=== PATIENT | female | born 1940 | race Caucasian/White ===

== ENCOUNTER → 2018-01-09 09:55 | Outpatient (CLI) | payer MEDICARE, OTHER, SELFPAY ==
--- NOTE | 2018-01-09 | DI.MRI.S_ITS ---
PROCEDURE: MR SHOULDER RT WO CON INDICATIONS: UNKNOWN TECHNIQUE: Noncontrast oblique coronal T2 fast spin echo with fat saturation, oblique sagittal T1 spin echo and T2 fast spin echo with fat saturation, axial T1 spin echo and T2 fast spin echo with fat saturation through the shoulder. COMPARISON: None. FINDINGS: Image quality: Excellent. Rotator cuff: There is full-thickness tear involving distal supraspinatus with 2 cm medial retraction of torn tendon fibers to the level of acromion and a fluid-filled gap measures 2 cm in AP dimension. Full-thickness rupture of the anterior to mid fibers of the distal infraspinatus is also seen with 2 cm medial retraction of torn tendon fibers from its insertion humeral head to the level of acromion. Moderate grade articular surface partial thickness involving the posterior fibers of the distal infraspinatus is seen. Tendinosis and low-grade intrasubstance partial thickness involving distal subscapularis is noted. Sagittal images demonstrate moderate supraspinatus muscle atrophy. Bones and bursae: No bone marrow contusions or fractures. 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 The acromion demonstrates conventional anatomy, without an os acromiale. Small to moderate amount of glenohumeral joint fluid and subacromial subdeltoid bursal fluid is seen. No definite loose body is noted. Capsule and soft tissues: In the absence of intra-articular contrast, the labrum and glenohumeral ligaments appear intact. Mild degenerative changes throughout labrum is noted. The long head of the biceps tendon demonstrates normal location and morphology. The rotator interval appears normal, without fibrosis. The coracohumeral ligament is normal in thickness. IMPRESSION: 1. Full-thickness rupture of distal supraspinatus and anterior to mid fibers of distal infraspinatus at their insertions on the greater tuberosity of humeral head with 2 cm medial retraction to the level of acromion. Moderate supraspinatus muscle atrophy. Tendinosis and low-grade intrasubstance partial thickness involving distal subscapularis. Moderate articular surface partial-thickness involving posterior fibers of distal infraspinatus. 2. Moderate acromioclavicular joint and glenohumeral joint osteophytes. Small to moderate amount of joint effusion. No gross loose body is seen. 3. Mild degenerative changes throughout labrum with no definite focal labral tear. Dictated by: Raghu Toledo, M.D. on 01/11/2018 at 8:50 Approved by: Raghu Toledo M.D. on 01/11/2018 at 8:59
== END ==
PROVIDERS: Visit Provider Orthopaedic Surgery
DX: M25.511 Pain in right shoulder (principal)
CPT/HCPCS: 73221

== ENCOUNTER → 2021-07-19 10:17 | Outpatient (CLI) | payer MEDICARE, OTHER, SELFPAY ==
--- NOTE | 2021-07-19 10:22 | DI.CT.S_ITS ---
PROCEDURE: CT PEL WO CON INDICATIONS: pelvic fracture TECHNIQUE: Noncontrast 3 mm axial sections acquired through the bony pelvis, with coronal and sagittal reformatting. COMPARISON: [facility], CT, CT CHEST ABDOMEN PELVIS WITH CONTRAST, 07/02/2021, 15:43. FINDINGS: Image quality: Excellent. Bones: Patient is status post right total hip arthroplasty with anatomic right hip alignment. Post fusion changes in visualized lower lumbar spine at L4 through S1 levels are seen. There is no gross hardware loosening or failure. Pelvic ring is intact. No acute pelvic fracture or dislocation is seen. No suspicious intraosseous lesion. Osteoarthritic changes are noted in left hip joint and bilateral sacroiliac joints. Osteoarthritic changes also seen in symphysis pubis. No evidence of avascular necrosis of femoral head. No suspicious intraosseous lesion is seen. Soft tissues: [employer]IAN shunt catheter is noted within lower pelvis. Fecal stasis in the colon is seen with sigmoid diverticulosis. No CT evidence of acute diverticulitis. No free fluid or free air. Bladder wall thickness is normal. No pelvic lymphadenopathy by size criteria. No gross muscle or soft tissue abnormality is seen in pelvis and bilateral hip. IMPRESSION: 1. 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 No gross hardware complication. 2. No acute pelvic fracture or dislocation. Osteoarthritis throughout bony pelvis. No evidence of avascular necrosis of femoral head. 3. No suspicious bony lesion. 4. No gross pelvic soft tissue abnormality. Dictated by: Raghu Toledo M.D. on 07/19/2021 at 13:57 Approved by: Raghu Toledo M.D. on 07/19/2021 at 14:01
--- NOTE | 2021-07-19 10:22 | DI.CT.S_ITS ---
PROCEDURE: CT LUMBAR SPINE WO CON INDICATIONS: Radiculopathy, lumbar region TECHNIQUE: Noncontrast 3 mm thick sections acquired from the T12 level to the sacrum. Sagittal and coronal reformats were constructed. For radiation dose reduction, the following was used: automated exposure control. COMPARISON: [facility], CT, CT MYELOGRAM LUMBAR SPINE, 01/04/2020, 14:51. FINDINGS: Postsurgical changes L4-S1 posterior fixation by means of bilateral rods and pedicle screws. There are also partially visualized spinal stimulator leads in the pulse generator in the right paraspinous soft tissues. No acute complicating hardware features are identified. Unchanged anterolisthesis of L4 on L5 measuring approximately 7 mm. Retrolisthesis of L1 on L2 measuring approximately 4 mm is also unchanged. Vertebral body heights are maintained. There are very little lumbar spine there is disc height loss with vacuum disc phenomenon and associated degenerative endplate changes including posterior osteophytic ridging of the endplates. There is bulky facet hypertrophy from L2-L3 through L5-S1. No acute finding of the regional soft tissues. Aortic atherosclerosis. Sigmoid diverticulosis. At T12-L1, mild spinal canal stenosis and mild to moderate bilateral neural foraminal stenosis, similar to the prior study. L1-L2, retrolisthesis of L1 on L2 combines with posterior disc-osteophyte complex to flatten and indent the ventral thecal sac producing mild spinal canal stenosis. These factors combine with facet hypertrophy to produce moderate bilateral neural foraminal stenosis. At L2-L3, moderate to severe subarticular zone stenosis and mild to moderate spinal canal stenosis due to a combination of diffuse disc bulge and a superimposed broad-based posterior disc protrusion in conjunction with buckling of the ligamentum flavum and facet hypertrophy. Moderate bilateral neural foraminal stenosis. At L3-L4, moderate spinal canal and subarticular zone stenosis with moderate to severe bilateral neural foraminal stenosis due to a combination of diffuse disc bulge and superimposed disc protrusion with buckling of the ligamentum flavum and facet hypertrophy. At L4-L5, suspected moderate spinal canal and subarticular zone stenosis due to a combination of sagittal bulge related to the anterolisthesis in conjunction with posterior discussed by complex and bulky facet hypertrophy. Mild to moderate neural foraminal stenosis. L5-S1, no obvious spinal canal stenosis. Mild to moderate neural foraminal stenosis. IMPRESSION: No significant change from comparison exam. Moderate to severe degenerative changes and post-surgical changes as detailed above. Dictated by: Kaleb Portillo M.D. on 07/19/2021 at 18:02 Approved by: Kaleb Portillo M.D. on 07/22/2021 at 15:09
== END ==
PROVIDERS: PCP Student in an Organized Health Care Education/Training Program; Referring Provider Physical Medicine & Rehabilitation; Visit Provider Physical Medicine & Rehabilitation
DX: M47.26 Other spondylosis with radiculopathy, lumbar region (principal); M19.09 Primary osteoarthritis, other specified site; K57.30 Diverticulosis of large intestine without perforation or abscess without bleeding; Z96.641 Presence of right artificial hip joint; Z98.1 Arthrodesis status
CPT/HCPCS: 72131; 72192

== ENCOUNTER 2021-09-27 19:38 | Emergency (ER) | payer MEDICARE, OTHER, SELFPAY ==
[2021-09-27] VITALS (9 sets, daily range): BP systolic 123–170; BP diastolic 67–82; PULSE 50–54; RESP 12–28; TEMP 36.3; O2SAT 94–98; BMI 28.3
--- NOTE | 2021-09-27 20:01 | DI.RAD.S_ITS ---
PROCEDURE: XR CHEST 2V INDICATIONS: Possible stroke TECHNIQUE: 2 views of the chest were acquired. COMPARISON: [facility], CR, XR CHEST 1VW (PORTABLE), 05/04/2016, 7:30. FINDINGS: Surgical changes and devices: There is a partially visualized DANCE HALL HOST/HOSTESS shunt catheter projecting over the right hemithorax. Epidural neurostimulator leads also demonstrated projecting over the lower thoracic spine, with the tips at T8 and T9. Lungs and pleura: There is a linear opacity in the left upper lung zone consistent with atelectasis or scarring. Lungs otherwise appear clear. No pleural effusions or pneumothorax. Mediastinum: There is a large hiatal hernia. Heart size is mildly enlarged. Bones and chest wall: No suspicious bony abnormalities. Soft tissues appear unremarkable. IMPRESSION: 1. No definite acute cardiopulmonary disease. 2. Large hiatal hernia. Dictated by: Jonas Chadwick M.D. on 09/27/2021 at 21:49 Approved by: Jonas Chadwick M.D. on 09/27/2021 at 21:50
--- NOTE | 2021-09-27 20:02 | DI.CT.S_ITS ---
PROCEDURE: CT HEAD/BRAIN WO CON INDICATIONS: facial droop this morning TECHNIQUE: Noncontrast 4.5 mm thick angled axial sections acquired from the foramen magnum to the vertex, with coronal and sagittal reformats. For radiation dose reduction, the following was used: automated exposure control, adjustment of mA and/or kV according to patient size. COMPARISON: [facility], CT, CT HEAD WITHOUT CONTRAST, 03/28/2019, 13:42. FINDINGS: Image quality: Excellent. CSF spaces: There is a right posterior parietal ventriculostomy shunt catheter with the tip extending into the anterior horn of the right lateral ventricle. Ventricles appear slightly decreased in size compared to the 03/28/2019 study. Basal cisterns are patent. No extra-axial fluid collections. Brain: No intracranial hemorrhage, mass, or mass effect. There are subcortical, periventricular and deep white matter hypodensities consistent with [id number] chronic small vessel ischemic changes. The campbell-white matter junction appears preserved. There is intracranial internal carotid artery atherosclerosis. Skull and face: There is a daniella hole in the right posterior parietal bone associated with the ventriculostomy shunt catheter. The visualized shunt catheter appears intact. Calvarium and visualized facial bones demonstrate no acute fractures. Sinuses: Visualized sinuses demonstrate small air-fluid levels within the sphenoid sinuses. A small air-fluid level was previously visualized in the right sphenoid sinus. Mastoid air cells are clear. IMPRESSION: 1. No definite acute intracranial abnormality. 2. Right posterior parietal [employer]ING [employer]GER shunt catheter appears unchanged in position. Ventricles appear slightly decreased in size compared to the prior study. 3. Mild to moderate chronic white matter small vessel ischemic changes. 4. Small air-fluid levels in the sphenoid sinuses suggestive of acute sinusitis. Dictated by: Jonas Chadwick M.D. on 09/27/2021 at 20:34 Approved by: Jonas Chadwick M.D. on 09/27/2021 at 20:39
[2021-09-27 21:08] LABS: Add Manual Diff / Slide Review NO; Basophils Absolute Auto 0 /uL (0-100); Basophils Percent Auto 0.8 % (0-2); Eosinophils Absolute Auto 100 /uL (0-450); Eosinophils Percent Auto 2.6 % (2-4); Hematocrit 39.2 % (36-46); Hemoglobin 12.9 g/dL (12.0-16.0); Lymphocytes Absolute Auto 1200 /uL (1100-4500); Lymphocytes Percent Auto 23.3 % (25-40); Mean Corpuscular Hemoglobin 31.7 PG (26-34); Monocytes Absolute Auto 400 /uL (0-900); Monocytes Percent Auto 7.3 % (3-14); Neutrophils Absolute Auto 3500 /uL (1500-7000); Platelet Count 222 X10^3/uL (150-400); Red Blood Cell Count 4.09 X10^6/uL (4.0-5.2); Red Cell Distribution Width 14.4 % (11.6-14.8); White Blood Cell Count 5.3 X10^3/uL (4.5-11.0)
[2021-09-27 21:17] LABS: Prothrombin Time 11.2 SECONDS (10.1-12.7)
[2021-09-27 21:19] LABS: PTT Partial Thromboplastin Tim 32 SECONDS (26.4-36.2)
[2021-09-27 21:21] LABS: Alanine Aminotransferase 29 IU/L (<35); Albumin 4.4 g/dL (3.5-5.0); Albumin Globulin Ratio 1.6 (1.0-2.8); Alkaline Phosphatase 133 U/L (38-126); Aspartate Aminotransferase 29 IU/L (14-36); BUN Creatinine Ratio 40.5 (6-22); Bilirubin Total 0.4 mg/dL (0.2-1.3); Blood Urea Nitrogen 32 mg/dL (7-17); Calcium 9.8 mg/dL (8.4-10.2); Carbon Dioxide 28 mmol/L (22-32); Chloride 104 mmol/L (98-107); Creatine Kinase 72 U/L (30-135); Estimated Glomerular Filt Rate > 60 mL/min (>60); Globulin 2.8 g/dL (1.7-4.1); Glucose 77 mg/dL (80-110); HEMOLYSIS < 15 (0-50); Magnesium 1.9 mg/dL (1.6-2.3); Potassium 4.2 mmol/L (3.4-5.1); Sodium 140 mmol/L (137-145); Total Protein 7.2 g/dL (6.3-8.2)
[2021-09-27 21:33] LABS: Troponin I < 0.012 ng/mL (0.01-0.034)
[2021-09-27 22:23] LABS: Appearance Urine UA CLEAR; Bilirubin Urine UA NEGATIVE (NEGATIVE); Color Urine UA YELLOW; Glucose Urine UA NEGATIVE (Negative); Ketones Urine UA NEGATIVE (NEGATIVE); Leukocyte Esterase Urine UA 1+ (NEGATIVE); Nitrite Urine UA NEGATIVE (Negative); Occult Blood Urine UA NEGATIVE (Negative); Protein Urine UA NEGATIVE (Negative); Ur Creatinine Normal (Normal); Ur Specific Gravity Normal (Normal); Urine pH Normal (Normal); Urobilinogen Urine UA 0.2 E.U./dL (0.2)
[2021-09-27 22:24] LABS: RBC Urine None Seen (0-5/HPF); Squamous Epithelial Cell Urine 0-1 /HPF (0-5/HPF); UR Morphine/Opiate cutoff 300 Negative (Negative); Urine Amphetamines Negative (Negative); Urine Barbiturates Negative (Negative); Urine Benzodiazepines Negative (Negative); Urine Cocaine Negative (Negative); Urine MDMA Negative (Negative); Urine Methadone Negative (Negative); Urine Methamphetamines Negative (Negative); Urine Oxycodone Negative (Negative); Urine Phencyclidine Negative (Negative); Urine Tetrahydrocannabinol Negative (Negative); Urine Tricyclic Antidepressant Negative (Negative)
[2021-09-27 22:25] LABS: Bacteria Urine Occasional (0-1); Culture Indicated Urine Specimen Cultured; WBC Urine 10-30/HPF (0-5/HPF)
--- NOTE | 2021-09-27 22:25 | ED.NEUROSD ---
HPI - Neuro Symptoms/Deficit General Chief Complaint: Neuro Symptoms/Deficit Stated Complaint: Rule out TIA / CVA Source: patient and family Mode of arrival: Wheelchair History of Present Illness On Anticoagulants: No (aspirin 81mg) Related Data Home Medications Medication Instructions Recorded Confirmed ALBUTEROL SULFATE (ACCUNEB) 3 ml INH Q 4-6 HR PRN ##0 05/11/12 CA PANTOTHENATE/FOLIC ACID/VIT 1 tab PO QDAY ##0 05/11/12 (MULTIVITAMIN) VITAMIN D (Vitamin D3) 2,000 iu PO QDAY ##0 05/11/12 LEVOTHYROXINE SODIUM 0.1 mg PO QDAY ##0 09/13/12 amlodipine 5 mg tablet (Norvasc) 10 mg PO QDAY ##0 09/13/12 hydrochlorothiazide 25 mg tablet 25 mg PO QDAY ##0 09/13/12 omeprazole 40 mg capsule,delayed 40 mg PO QDAY ##0 09/13/12 release venlafaxine 150 mg 300 mg PO QDAY ##0 09/13/12 capsule,extended release 24 hr fluticasone propionate 110 1 spray INH BID ##0 02/10/16 mcg/actuation HFA aerosol inhaler (Flovent HFA) Previous Rx's Medication Instructions Recorded nitrofurantoin 100 mg PO BID 7 days #0 caps 02/10/16 monohydrate/macrocrystals 100 mg capsule (Macrobid) phenazopyridine 200 mg tablet 200 mg PO TID PRN #6 tabs 02/10/16 (Pyridium) Allergies Allergy/AdvReac Type Severity Reaction Status Date / Time ciprofloxacin [From CIPRO] Allergy Unknown Unverified 07/01/17 12:01 codeine [CODEINE] Allergy Unknown HALLUCINATI Unverified 07/01/17 12:01 ON/WOOZY lisinopril [LISINOPRIL] Allergy Unknown COUGH Unverified 07/01/17 12:01 morphine [MORPHINE] Allergy Unknown HALLUCINATI Unverified 07/01/17 12:01 ONS pramipexole [PRAMIPEXOLE] Allergy Unknown MULTIPLE Unverified 07/01/17 12:01 UNPLEASANT SIDE EFFECTS Review of Systems Hematologic/Lymphatic On Anticoagulants: No (aspirin 81mg) Patient History Social History Smoking Status: Never smoker Smoking Status: Never smoker Substance Use Type: does not use Exam Initial Vital Signs Initial Vital Signs: Vital Signs Temperature 97.4 F L 09/27/21 19:48 Pulse Rate 53 L 09/27/21 19:48 Respiratory Rate 16 09/27/21 19:48 Blood Pressure 131/75 09/27/21 19:48 Pulse Oximetry 98 09/27/21 19:48 Oxygen Delivery Method 09/27/21 19:48 Course Orders Ordered: ED Orders 09/27/21 19:59 EKG-12 Lead Stat 09/27/21 20:01 XR chest 2V Stat 09/27/21 20:02 CT head/brain wo con Stat 09/27/21 20:50 Complete Blood Count AUTO DIFF Stat Comprehensive Metabolic Panel Stat Magnesium Stat Partial Thromboplastin Time Stat Prothrombin Time INR Stat Troponin & CK Cardiac Panel Stat 09/27/21 21:52 Urinalysis and Microscopic Stat Urine Culture Stat Urine Drug Screen, Rapid Stat Vital Signs Vital signs: Vital Signs - 8 hr 09/27/21 19:48 09/27/21 20:56 09/27/21 20:56 Temperature 97.4 F L Pulse Rate 53 L 53 L Respiratory Rate 16 19 Blood Pressure 131/75 141/74 H Pulse Oximetry 98 98 Oxygen Delivery Method Room Air 09/27/21 21:00 09/27/21 21:00 Temperature Pulse Rate 52 L Respiratory Rate 20 Blood Pressure 123/67 Pulse Oximetry 97 Oxygen Delivery Method MDM - Neuro Symptoms/Deficit Lab Data Result diagrams: 09/27/21 20:50 09/27/21 20:50 Labs: Lab Results 09/27/21 09/27/21 09/27/21 Range/Units 20:50 20:50 20:50 WBC 5.3 (4.5-11.0) X10^3/uL RBC 4.09 (4.0-5.2) X10^6/uL Hgb 12.9 (12.0-16.0) g/dL Hct 39.2 (36-46) % MCV 96.0 (80-100) fL MCH 31.7 (26-34) PG MCHC 33.0 (30-36) % RDW 14.4 (11.6-14.8) % Plt Count 222 (150-400) X10^3/uL Neut % (Auto) 66.0 (50-75) % Lymph % (Auto) 23.3 L (25-40) % [place]pie % (Auto) 7.3 (3-14) % Eos % (Auto) 2.6 (2-4) % Baso % (Auto) 0.8 (0-2) % Neut # (Auto) 3500 (9384-2627) /uL Lymph # (Auto) 1200 (6710-5421) /uL Gillespie # (Auto) 400 (0-900) /uL Eos # (Auto) 100 (0-450) /uL Baso # (Auto) 0 (0-100) /uL PT 11.2 (10.1-12.7) SECONDS INR 1.0 (0.9-1.3) APTT 32 (26.4-36.2) SECONDS Sodium 140 (137-145) mmol/L Potassium 4.2 (3.4-5.1) mmol/L Chloride 104 (98-107) mmol/L Carbon Dioxide 28 (22-32) mmol/L BUN 32 H (7-17) mg/dL Creatinine 0.79 (0.52-1.04) mg/dL Estimated GFR > 60 (>60) mL/min BUN/Creatinine Ratio 40.5 H (6-22) Glucose 77 L (80-110) mg/dL Calcium 9.8 (8.4-10.2) mg/dL Magnesium 1.9 (1.6-2.3) mg/dL Total Bilirubin 0.4 (0.2-1.3) mg/dL AST 29 (14-36) IU/L ALT 29 (<35) IU/L Alkaline Phosphatase 133 H (38-126) U/L Total Creatine Kinase 72 (30-135) U/L CK-MB (CK-2) TNP CK-MB (CK-2) Rel Index TNP Troponin I < 0.012 (0.01-0.034) ng/mL Total Protein 7.2 (6.3-8.2) g/dL Albumin 4.4 (3.5-5.0) g/dL Globulin 2.8 (1.7-4.1) g/dL Albumin/Globulin Ratio 1.6 (1.0-2.8) Urine Color Urine Appearance Urine pH (4.5-8.0) Ur Specific [place] (1.000-1.035) Urine Protein (Negative) Urine Glucose (UA) (Negative) g/dL Urine Ketones (NEGATIVE) Urine Occult Blood (Negative) Urine Nitrate (Negative) Urine Bilirubin (NEGATIVE) Urine Urobilinogen (0.2) E.U./dL Ur Leukocyte Esterase (NEGATIVE) Urine RBC (0-5/HPF) Urine WBC (0-5/HPF) Ur Squamous Epith Cells (0-5/HPF) Urine Bacteria (None) Ur Culture Indicated? U Opiates 300ng/mL cut (Negative) Ur Oxycodone Screen (Negative) Urine Methadone Screen (Negative) Ur Barbiturates Screen (Negative) U Tricyclic Antidepress (Negative) Ur Phencyclidine Scrn (Negative) Ur Amphetamines Screen (Negative) U Methamphetamines Scrn (Negative) Ur MDMA Scrn (Ecstasy) (Negative) U Benzodiazepines Scrn (Negative) Urine Cocaine Screen (Negative) U Marijuana (THC) Screen (Negative) 09/27/21 09/27/21 Range/Units 21:52 21:52 WBC (4.5-11.0) X10^3/uL RBC (4.0-5.2) X10^6/uL Hgb (12.0-16.0) g/dL Hct (36-46) % MCV (80-100) fL MCH (26-34) PG MCHC (30-36) % RDW (11.6-14.8) % Plt Count (150-400) X10^3/uL Neut % (Auto) (50-75) % Lymph % (Auto) (25-40) % Gillespie % (Auto) (3-14) % Eos % (Auto) (2-4) % Baso % (Auto) (0-2) % Neut # (Auto) (4631-2229) /uL Lymph # (Auto) (8562-9074) /uL Gillespie # (Auto) (0-900) /uL Eos # (Auto) (0-450) /uL Baso # (Auto) (0-100) /uL PT (10.1-12.7) SECONDS INR (0.9-1.3) APTT (26.4-36.2) SECONDS Sodium (137-145) mmol/L Potassium (3.4-5.1) mmol/L Chloride (98-107) mmol/L Carbon Dioxide (22-32) mmol/L BUN (7-17) mg/dL Creatinine (0.52-1.04) mg/dL Estimated GFR (>60) mL/min BUN/Creatinine Ratio (6-22) Glucose (80-110) mg/dL Calcium (8.4-10.2) mg/dL Magnesium (1.6-2.3) mg/dL Total Bilirubin (0.2-1.3) mg/dL AST (14-36) IU/L ALT (<35) IU/L Alkaline Phosphatase (38-126) U/L Total Creatine Kinase (30-135) U/L CK-MB (CK-2) CK-MB (CK-2) Rel Index Troponin I (0.01-0.034) ng/mL Total Protein (6.3-8.2) g/dL Albumin (3.5-5.0) g/dL Globulin (1.7-4.1) g/dL Albumin/Globulin Ratio (1.0-2.8) Urine Color Yellow Urine Appearance Clear Urine pH 6.0 (4.5-8.0) Ur Specific [place] 1.020 (1.000-1.035) Urine Protein Negative (Negative) Urine Glucose (UA) Negative (Negative) g/dL Urine Ketones Negative (NEGATIVE) Urine Occult Blood Negative (Negative) Urine Nitrate Negative (Negative) Urine Bilirubin Negative (NEGATIVE) Urine Urobilinogen 0.2 (0.2) E.U./dL Ur Leukocyte Esterase 1+ H (NEGATIVE) Urine RBC None seen (0-5/HPF) Urine WBC 10-30/hpf H (0-5/HPF) Ur Squamous Epith Cells 0-1 /hpf (0-5/HPF) Urine Bacteria Occasional (0-1) (None) Ur Culture Indicated? Specimen cultured U Opiates 300ng/mL cut Negative (Negative) Ur Oxycodone Screen Negative (Negative) Urine Methadone Screen Negative (Negative) Ur Barbiturates Screen Negative (Negative) U Tricyclic Antidepress Negative (Negative) Ur Phencyclidine Scrn Negative (Negative) Ur Amphetamines Screen Negative (Negative) U Methamphetamines Scrn Negative (Negative) Ur MDMA Scrn (Ecstasy) Negative (Negative) U Benzodiazepines Scrn Negative (Negative) Urine Cocaine Screen Negative (Negative) U Marijuana (THC) Screen Negative (Negative) Urine Dip Bedside Urine Glucose Negative Bedside Urine Bilirubin - Negative Bedside Urine Ketone - Negative Urine Specific [place] 1.025 Bedside Urine Occult Blood - Negative Bedside Urine pH 6.0 Bedside Urine Protein - Negative Bedside Urine Urobilinogen - Negative Bedside Urine Nitrite - Negative Bedside Urine Leukocytes + 70 Esterase Discharge Plan Departure Prescriptions: No Action ALBUTEROL SULFATE (ACCUNEB) 3 ml INH Q 4-6 HR PRN Qty: 0 CA PANTOTHENATE/FOLIC ACID/VIT (MULTIVITAMIN) 1 tab PO QDAY Qty: 0 VITAMIN D (Vitamin D3) 2,000 iu PO QDAY Qty: 0 amlodipine [Norvasc] 5 MG tablet 10 mg PO QDAY Qty: 0 omeprazole 40 MG capsule,delayed release(DR/EC) 40 mg PO QDAY Qty: 0 hydrochlorothiazide 25 MG tablet 25 mg PO QDAY Qty: 0 LEVOTHYROXINE SODIUM 0.1 mg PO QDAY Qty: 0 venlafaxine 150 MG capsule,extended release 24hr 300 mg PO QDAY Qty: 0 fluticasone propionate [Flovent HFA] 12 GM HFA aerosol inhaler 1 spray INH BID Qty: 0 phenazopyridine [Pyridium] 200 MG tablet 200 mg PO TID PRNQty: 6 0RF nitrofurantoin monohyd/m-cryst [Macrobid] 100 MG capsule 100 mg PO BID 7 Days Qty: 0 0RF Referrals: Myla Edouard MD [Primary Care Provider] -
--- NOTE | 2021-09-27 23:12 | ED.NEUROSD ---
HPI - Neuro Symptoms/Deficit General Chief Complaint: Neuro Symptoms/Deficit Stated Complaint: Rule out TIA / CVA Time Seen by Provider: 09/27/21 23:12 Source: patient and family Mode of arrival: Wheelchair History of Present Illness HPI Narrative: 81-year-old woman with history of normal pressure hydrocephalus with LENDING CONS[employer]ANT shunt in place, uterine cancer 4 years ago with chemo and radiation, lung cancer 2 years ago with radiation, schedule for hiatal hernia surgery in the near future, hypertension hyperlipidemia who presents with complaints of right-sided facial droop that lasted approximately 10 minutes. She noted that her right eye felt particularly puffy at about 11:00 a.m. this morning, went to the bathroom to check on it and noticed when she smiled the right side of her face did not go up completely. Mildly decreased sensation to the right side of the face with no other complaints. After talking to 2 daughters in her primary care physician she was encouraged to come to the emergency department. She presented at approximately 8:[address] scan was done. She has remained asymptomatic throughout her emergency department stay. She denies any recent fevers, cough, chills she notes that she has chronic dizziness chronic back pain with a nerve stimulator in place chronic paresthesia along the lateral aspect of the right thigh secondary to the nerve stimulator difficulty walking because of her back pain. She has not had cough, dyspnea. She has been having difficulty with chest pain reflux symptoms that are related to her large hiatal hernia but she has not complained of constipation or diarrhea. She has no dysuria urgency or frequency. On Anticoagulants: No (aspirin 81mg) Related Data Home Medications Medication Instructions Recorded Confirmed ALBUTEROL SULFATE (ACCUNEB) 3 ml INH Q 4-6 HR PRN ##0 05/11/12 CA PANTOTHENATE/FOLIC ACID/VIT 1 tab PO QDAY ##0 05/11/12 (MULTIVITAMIN) VITAMIN D (Vitamin D3) 2,000 iu PO QDAY ##0 05/11/12 LEVOTHYROXINE SODIUM 0.1 mg PO QDAY ##0 09/13/12 amlodipine 5 mg tablet (Norvasc) 10 mg PO QDAY ##0 09/13/12 hydrochlorothiazide 25 mg tablet 25 mg PO QDAY ##0 09/13/12 omeprazole 40 mg capsule,delayed 40 mg PO QDAY ##0 09/13/12 release venlafaxine 150 mg 300 mg PO QDAY ##0 09/13/12 capsule,extended release 24 hr fluticasone propionate 110 1 spray INH BID ##0 02/10/16 mcg/actuation HFA aerosol inhaler (Flovent HFA) Previous Rx's Medication Instructions Recorded nitrofurantoin 100 mg PO BID 7 days #0 caps 02/10/16 monohydrate/macrocrystals 100 mg capsule (Macrobid) phenazopyridine 200 mg tablet 200 mg PO TID PRN #6 tabs 02/10/16 (Pyridium) Allergies Allergy/AdvReac Type Severity Reaction Status Date / Time ciprofloxacin [From CIPRO] Allergy Unknown Unverified 07/01/17 12:01 codeine [CODEINE] Allergy Unknown HALLUCINATI Unverified 07/01/17 12:01 ON/WOOZY lisinopril [LISINOPRIL] Allergy Unknown COUGH Unverified 07/01/17 12:01 morphine [MORPHINE] Allergy Unknown HALLUCINATI Unverified 07/01/17 12:01 ONS pramipexole [PRAMIPEXOLE] Allergy Unknown MULTIPLE Unverified 07/01/17 12:01 UNPLEASANT SIDE EFFECTS Review of Systems Review of Systems Narrative: Remainder of complete review of systems is otherwise unremarkable except for that included in the HPI. Hematologic/Lymphatic On Anticoagulants: No (aspirin 81mg) Patient History Medical History (Updated 09/27/21 @ 23:39 by Lawanda Lockhart MD) Hyperlipidemia Hypertension Lung cancer Normal pressure hydrocephalus Uterine cancer Social History Smoking Status: Never smoker Smoking Status: Never smoker Substance Use Type: does not use Exam Initial Vital Signs Initial Vital Signs: Vital Signs Temperature 97.4 F L 09/27/21 19:48 Pulse Rate 53 L 09/27/21 19:48 Respiratory Rate 16 09/27/21 19:48 Blood Pressure 131/75 09/27/21 19:48 Pulse Oximetry 98 09/27/21 19:48 Oxygen Delivery Method 09/27/21 19:48 General: Chronically ill-appearing but in no acute distress. Able to give a complete and coherent history. Well-nourished well-developed HEENT: Moist mucous membranes, normal sclera with reactive pupils, no facial droop repairs seizures Neck: No JVD, supple Respiratory: Lungs are clear to auscultation, no wheezing no rales no rhonchi. Full and symmetrical air movement Cardiac: Regular rate and rhythm no murmurs no bruits Abdomen: Soft, nontender, good bowel tones, no flank pain Skin: Warm and dry, no rashes Neurologic: Moving all extremities, no cognitive deficits, mild right lateral thigh paresthesia chronic. Normal speech fluency Extremities: No trauma, well perfused Psych: Cooperative, good eye contact, appropriate insight Course Orders Ordered: ED Orders 09/27/21 19:59 EKG-12 Lead Stat 09/27/21 20:01 XR chest 2V Stat 09/27/21 20:02 CT head/brain wo con Stat 09/27/21 20:50 Complete Blood Count AUTO DIFF Stat Comprehensive Metabolic Panel Stat Magnesium Stat Partial Thromboplastin Time Stat Prothrombin Time INR Stat Troponin & CK Cardiac Panel Stat 09/27/21 21:52 Urinalysis and Microscopic Stat Urine Culture Stat Urine Drug Screen, Rapid Stat Vital Signs Vital signs: Vital Signs - 8 hr 09/27/21 19:48 09/27/21 20:56 09/27/21 20:56 Temperature 97.4 F L Pulse Rate 53 L 53 L Respiratory Rate 16 19 Blood Pressure 131/75 141/74 H Pulse Oximetry 98 98 Oxygen Delivery Method Room Air 09/27/21 21:00 09/27/21 21:00 09/27/21 21:30 Temperature Pulse Rate 52 L Respiratory Rate 20 Blood Pressure 123/67 128/69 Pulse Oximetry 97 Oxygen Delivery Method 09/27/21 21:30 09/27/21 21:54 09/27/21 21:54 Temperature Pulse Rate 52 L 54 L Respiratory Rate 21 28 H Blood Pressure 170/82 H Pulse Oximetry 97 94 Oxygen Delivery Method 09/27/21 22:00 09/27/21 22:00 09/27/21 22:30 Temperature Pulse Rate 50 L Respiratory Rate 12 Blood Pressure 140/74 150/77 H Pulse Oximetry 97 Oxygen Delivery Method 09/27/21 22:30 Temperature Pulse Rate 51 L Respiratory Rate 21 Blood Pressure Pulse Oximetry 97 Oxygen Delivery Method MDM - Neuro Symptoms/Deficit Lab Data Result diagrams: 09/27/21 20:50 09/27/21 20:50 Labs: Lab Results 09/27/21 09/27/21 09/27/21 Range/Units 20:50 20:50 20:50 WBC 5.3 (4.5-11.0) X10^3/uL RBC 4.09 (4.0-5.2) X10^6/uL Hgb 12.9 (12.0-16.0) g/dL Hct 39.2 (36-46) % MCV 96.0 (80-100) fL MCH 31.7 (26-34) PG MCHC 33.0 (30-36) % RDW 14.4 (11.6-14.8) % Plt Count 222 (150-400) X10^3/uL Neut % (Auto) 66.0 (50-75) % Lymph % (Auto) 23.3 L (25-40) % [place] % (Auto) 7.3 (3-14) % Eos % (Auto) 2.6 (2-4) % Baso % (Auto) 0.8 (0-2) % Neut # (Auto) 3500 (1447-8539) /uL Lymph # (Auto) 1200 (8842-6369) /uL [place] # (Auto) 400 (0-900) /uL Eos # (Auto) 100 (0-450) /uL Baso # (Auto) 0 (0-100) /uL PT 11.2 (10.1-12.7) SECONDS INR 1.0 (0.9-1.3) APTT 32 (26.4-36.2) SECONDS Sodium 140 (137-145) mmol/L Potassium 4.2 (3.4-5.1) mmol/L Chloride 104 (98-107) mmol/L Carbon Dioxide 28 (22-32) mmol/L BUN 32 H (7-17) mg/dL Creatinine 0.79 (0.52-1.04) mg/dL Estimated GFR > 60 (>60) mL/min BUN/Creatinine Ratio 40.5 H (6-22) Glucose 77 L (80-110) mg/dL Calcium 9.8 (8.4-10.2) mg/dL Magnesium 1.9 (1.6-2.3) mg/dL Total Bilirubin 0.4 (0.2-1.3) mg/dL AST 29 (14-36) IU/L ALT 29 (<35) IU/L Alkaline Phosphatase 133 H (38-126) U/L Total Creatine Kinase 72 (30-135) U/L CK-MB (CK-2) TNP CK-MB (CK-2) Rel Index TNP Troponin I < 0.012 (0.01-0.034) ng/mL Total Protein 7.2 (6.3-8.2) g/dL Albumin 4.4 (3.5-5.0) g/dL Globulin 2.8 (1.7-4.1) g/dL Albumin/Globulin Ratio 1.6 (1.0-2.8) Urine Color Urine Appearance Urine pH (4.5-8.0) Ur Specific [place] (1.000-1.035) Urine Protein (Negative) Urine Glucose (UA) (Negative) g/dL Urine Ketones (NEGATIVE) Urine Occult Blood (Negative) Urine Nitrate (Negative) Urine Bilirubin (NEGATIVE) Urine Urobilinogen (0.2) E.U./dL Ur Leukocyte Esterase (NEGATIVE) Urine RBC (0-5/HPF) Urine WBC (0-5/HPF) Ur Squamous Epith Cells (0-5/HPF) Urine Bacteria (None) Ur Culture Indicated? U Opiates 300ng/mL cut (Negative) Ur Oxycodone Screen (Negative) Urine Methadone Screen (Negative) Ur Barbiturates Screen (Negative) U Tricyclic Antidepress (Negative) Ur Phencyclidine Scrn (Negative) Ur Amphetamines Screen (Negative) U Methamphetamines Scrn (Negative) Ur MDMA Scrn (Ecstasy) (Negative) U Benzodiazepines Scrn (Negative) Urine Cocaine Screen (Negative) U Marijuana (THC) Screen (Negative) 09/27/21 09/27/21 Range/Units 21:52 21:52 WBC (4.5-11.0) X10^3/uL RBC (4.0-5.2) X10^6/uL Hgb (12.0-16.0) g/dL Hct (36-46) % MCV (80-100) fL MCH (26-34) PG MCHC (30-36) % RDW (11.6-14.8) % Plt Count (150-400) X10^3/uL Neut % (Auto) (50-75) % Lymph % (Auto) (25-40) % [place] % (Auto) (3-14) % Eos % (Auto) (2-4) % Baso % (Auto) (0-2) % Neut # (Auto) (1558-1909) /uL Lymph # (Auto) (7469-8116) /uL [place] # (Auto) (0-900) /uL Eos # (Auto) (0-450) /uL Baso # (Auto) (0-100) /uL PT (10.1-12.7) SECONDS INR (0.9-1.3) APTT (26.4-36.2) SECONDS Sodium (137-145) mmol/L Potassium (3.4-5.1) mmol/L Chloride (98-107) mmol/L Carbon Dioxide (22-32) mmol/L BUN (7-17) mg/dL Creatinine (0.52-1.04) mg/dL Estimated GFR (>60) mL/min BUN/Creatinine Ratio (6-22) Glucose (80-110) mg/dL Calcium (8.4-10.2) mg/dL Magnesium (1.6-2.3) mg/dL Total Bilirubin (0.2-1.3) mg/dL AST (14-36) IU/L ALT (<35) IU/L Alkaline Phosphatase (38-126) U/L Total Creatine Kinase (30-135) U/L CK-MB (CK-2) CK-MB (CK-2) Rel Index Troponin I (0.01-0.034) ng/mL Total Protein (6.3-8.2) g/dL Albumin (3.5-5.0) g/dL Globulin (1.7-4.1) g/dL Albumin/Globulin Ratio (1.0-2.8) Urine Color Yellow Urine Appearance Clear Urine pH 6.0 (4.5-8.0) Ur Specific [place] 1.020 (1.000-1.035) Urine Protein Negative (Negative) Urine Glucose (UA) Negative (Negative) g/dL Urine Ketones Negative (NEGATIVE) Urine Occult Blood Negative (Negative) Urine Nitrate Negative (Negative) Urine Bilirubin Negative (NEGATIVE) Urine Urobilinogen 0.2 (0.2) E.U./dL Ur Leukocyte Esterase 1+ H (NEGATIVE) Urine RBC None seen (0-5/HPF) Urine WBC 10-30/hpf H (0-5/HPF) Ur Squamous Epith Cells 0-1 /hpf (0-5/HPF) Urine Bacteria Occasional (0-1) (None) Ur Culture Indicated? Specimen cultured U Opiates 300ng/mL cut Negative (Negative) Ur Oxycodone Screen Negative (Negative) Urine Methadone Screen Negative (Negative) Ur Barbiturates Screen Negative (Negative) U Tricyclic Antidepress Negative (Negative) Ur Phencyclidine Scrn Negative (Negative) Ur Amphetamines Screen Negative (Negative) U Methamphetamines Scrn Negative (Negative) Ur MDMA Scrn (Ecstasy) Negative (Negative) U Benzodiazepines Scrn Negative (Negative) Urine Cocaine Screen Negative (Negative) U Marijuana (THC) Screen Negative (Negative) Urine Dip Bedside Urine Glucose Negative Bedside Urine Bilirubin - Negative Bedside Urine Ketone - Negative Urine Specific [place] 1.025 Bedside Urine Occult Blood - Negative Bedside Urine pH 6.0 Bedside Urine Protein - Negative Bedside Urine Urobilinogen - Negative Bedside Urine Nitrite - Negative Bedside Urine Leukocytes + [address] scan - head: Radiologist's Impression: FINDINGS:? Image quality:? Excellent.? ? CSF spaces:? There is a right posterior parietal ventriculostomy shunt catheter with the tip extending into the anterior horn of the right lateral ventricle.? Ventricles appear slightly decreased in size compared to the 03/28/2019 study.? Basal cisterns are patent.? No extra-axial fluid collections.? ? Brain:? No intracranial hemorrhage, mass, or mass effect.? There are subcortical, periventricular and deep white matter hypodensities consistent with [id number] chronic small vessel ischemic changes.? The campbell-white matter junction appears preserved. ?There is intracranial internal carotid artery atherosclerosis.? ? Skull and face:? There is a daniella hole in the right posterior parietal bone associated with the ventriculostomy shunt catheter.? The visualized shunt catheter appears intact.? Calvarium and visualized facial bones demonstrate no acute fractures. ? Sinuses:? Visualized sinuses demonstrate small air-fluid levels within the sphenoid sinuses.? A small air-fluid level was previously visualized in the right sphenoid sinus.? Mastoid air cells are clear. ? IMPRESSION:? ? 1. No definite acute intracranial abnormality. ? 2. Right posterior parietal [employer] shunt catheter appears unchanged in position.? Ventricles appear slightly decreased in size compared to the prior study. ? 3. Mild to moderate chronic white matter small vessel ischemic changes. ? 4. Small air-fluid levels in the sphenoid sinuses suggestive of acute sinusitis.? ? ? Dictated by: Jonas Chadwick M.D. on 09/27/2021 at 20:34 ? ? Chest x-ray: Radiologist's Impression: FINDINGS:? ? Surgical changes and devices:? There is a partially visualized [employer] shunt catheter projecting over the right hemithorax.? Epidural neurostimulator leads also demonstrated projecting over the lower thoracic spine, with the tips at T8 and T9. ? Lungs and pleura:? There is a linear opacity in the left upper lung zone consistent with atelectasis or scarring.? Lungs otherwise appear clear.? No pleural effusions or pneumothorax.? ? Mediastinum:? There is a large hiatal hernia.? Heart size is mildly enlarged.? ? Bones and chest wall:? No suspicious bony abnormalities.? Soft tissues appear unremarkable.? ? IMPRESSION:? ? 1. No definite acute cardiopulmonary disease. ? 2. Large hiatal hernia.? ? ? Dictated by: Jonas Chadwick M.D. on 09/27/2021 at 21:49 ? ? ECG Data Interpretation: Sinus bradycardia at a rate of 51 Left axis deviation No acute ischemic changes MDM Narrative Medical decision making narrative: 81-year-old woman presents with 10-15 minutes of right facial droop consistent with a mild TIA with symptoms entirely resolved at this point. She has a complex history including L[employer] CONS[employer]ANT shunt in place. She has never had stroke symptoms previously with a nerve stimulator in place she would not be able to have an MRI and has had multiple sets of imaging of her brain with no obvious abnormalities appreciated. CT scan today does not show intracranial hemorrhage, mass and shunt appears to be working appropriately. She currently takes 2 baby aspirin, blood pressure is controlled with medications and she is on a cholesterol-lowering medication. With shared decision-making we discussed options for TIA treatment. I think there is little benefit to the offering admission or additional workup for her. She is on appropriate medical management and treatment and does understand this. Reviewed signs and symptoms of stroke and reasons to return to the emergency department. Her L[employer] shunt would make her ineligible for tPA so the urgency of coming immediately is not stressed. With this discussion she would prefer to go home and I feel this is absolutely appropriate. Questions are answered and she is safe for home discharge Discharge Plan Departure Patient Disposition: Home Clinical Impression: Brain TIA Instructions: DI for Transient Ischemic Attack Activity Restrictions/Additional Instructions: Thank you for coming in today Your symptoms are consistent with a small TIA. I am very pleased that everything has completely resolved you seem back to normal this evening. Your CT scan was reassuring as was her blood work. Treatment for TIA includes everything that you are already doing including baby aspirin, blood pressure control and a cholesterol medication. Because of your shunt, if you were to have a large stroke, you would not be a candidate for using a blood clot busting medication. If you do have severe symptoms please do come to the emergency department. I wish you the best Prescriptions: No Action ALBUTEROL SULFATE (ACCUNEB) 3 ml INH Q 4-6 HR PRN Qty: 0 CA PANTOTHENATE/FOLIC ACID/VIT (MULTIVITAMIN) 1 tab PO QDAY Qty: 0 VITAMIN D (Vitamin D3) 2,000 iu PO QDAY Qty: 0 amlodipine [Norvasc] 5 MG tablet 10 mg PO QDAY Qty: 0 omeprazole 40 MG capsule,delayed release(DR/EC) 40 mg PO QDAY Qty: 0 hydrochlorothiazide 25 MG tablet 25 mg PO QDAY Qty: 0 LEVOTHYROXINE SODIUM 0.1 mg PO QDAY Qty: 0 venlafaxine 150 MG capsule,extended release 24hr 300 mg PO QDAY Qty: 0 fluticasone propionate [Flovent HFA] 12 GM HFA aerosol inhaler 1 spray INH BID Qty: 0 phenazopyridine [Pyridium] 200 MG tablet 200 mg PO TID PRNQty: 6 0RF nitrofurantoin monohyd/m-cryst [Macrobid] 100 MG capsule 100 mg PO BID 7 Days Qty: 0 0RF Referrals: Myla Edouard MD [Primary Care Provider] -
== END 2021-09-27 23:52 | disposition home or self-care (01) ==
PROVIDERS: Emergency Provider Emergency Medicine; PCP Student in an Organized Health Care Education/Training Program
DX: G45.9 Transient cerebral ischemic attack, unspecified (principal); I10 Essential (primary) hypertension; R00.1 Bradycardia, unspecified
CPT/HCPCS: 36415; 70450; 71046; 80053; 80305; 81001; 81003; 82550; 83735; 84484; 85025; 85610; 85730; 87086; 93005; 93010; 99284

== ENCOUNTER 2021-12-09 19:14 | Emergency (ER) | payer MEDICARE, OTHER, SELFPAY ==
[2021-12-09] VITALS (15 sets, daily range): BP systolic 139–173; BP diastolic 72–83; PULSE 44–61; RESP 12–37; TEMP 36.7; O2SAT 95–99
--- NOTE | 2021-12-09 19:23 | DI.RAD.S_ITS ---
PROCEDURE: XR CHEST 1V INDICATIONS: chest pain TECHNIQUE: One view of the chest was acquired. COMPARISON: [facility], CR, XR CHEST 2V, 09/27/2021, 20:07. FINDINGS: Surgical changes and devices: Multiple monitoring wires project over the chest. Stable appearance of thoracic spinal stimulator device. Partially imaged right ventriculoperitoneal shunt projecting over the right chest wall. Lungs and pleura: Redemonstration of linear opacity projecting over the left upper lung zone likely representing scarring or atelectasis. No new focal airspace disease. No pleural effusions or pneumothorax. Redemonstration of hiatal hernia. Mediastinum: Mediastinal contours appear normal. Heart size is normal. Bones and chest wall: No suspicious bony lesions. Overlying soft tissues appear unremarkable. IMPRESSION: Stable evaluation of the chest without acute cardiopulmonary abnormalities. No acute focal airspace disease identified. Dictated by: Bo Lerma M.D. on 12/09/2021 at 20:38 Approved by: Bo Lerma M.D. on 12/09/2021 at 20:41
[2021-12-09 19:52] LABS: Add Manual Diff / Slide Review NO; Alanine Aminotransferase 27 IU/L (<35); Albumin 4.1 g/dL (3.5-5.0); Albumin Globulin Ratio 1.2 (1.0-2.8); Alkaline Phosphatase 120 U/L (38-126); Aspartate Aminotransferase 34 IU/L (14-36); BUN Creatinine Ratio 27.3 (6-22); Basophils Absolute Auto 0 /uL (0-100); Basophils Percent Auto 0.4 % (0-2); Bilirubin Total 0.6 mg/dL (0.2-1.3); Blood Urea Nitrogen 21 mg/dL (7-17); Calcium 9.8 mg/dL (8.4-10.2); Carbon Dioxide 26 mmol/L (22-32); Chloride 103 mmol/L (98-107); Creatine Kinase 25 U/L (30-135); Eosinophils Absolute Auto 300 /uL (0-450); Eosinophils Percent Auto 7.7 % (2-4); Estimated Glomerular Filt Rate > 60 mL/min (>60); Globulin 3.3 g/dL (1.7-4.1); Glucose 81 mg/dL (80-110); Hematocrit 40.5 % (36-46); Hemoglobin 13.5 g/dL (12.0-16.0); Lipase 39 U/L (23-300); Lymphocytes Absolute Auto 1500 /uL (1100-4500); Lymphocytes Percent Auto 33.2 % (25-40); Magnesium 1.8 mg/dL (1.6-2.3); Mean Corpuscular HGB Conc 33.3 % (30-36); Mean Corpuscular Hemoglobin 31.3 PG (26-34); Mean Corpuscular Volume 94.2 fL (80-100); Monocytes Absolute Auto 400 /uL (0-900); Monocytes Percent Auto 8.4 % (3-14); Neutrophils Absolute Auto 2200 /uL (1500-7000); Neutrophils Percent Auto 50.3 % (50-75); Platelet Count 248 X10^3/uL (150-400); Red Cell Distribution Width 13.1 % (11.6-14.8); Sodium 137 mmol/L (137-145); Total Protein 7.4 g/dL (6.3-8.2); White Blood Cell Count 4.5 X10^3/uL (4.5-11.0)
[2021-12-09 19:54] LABS: COVID19 -Nasal RAPID Negative (Negative)
--- NOTE | 2021-12-09 19:54 | ED_ITS ---
HPI - Dizziness General Chief Complaint: Dizziness Stated Complaint: Dizzy nausea fatigue fall Time Seen by Provider: 12/09/21 19:46 Source: patient Mode of arrival: Wheelchair Limitations: no limitations History of Present Illness HPI Narrative: Patient presents with dizziness. She had surgery 2 weeks ago for hiatal hernia. She has experienced dizziness intermittently since then. She fell yesterday. She has dizziness now even when moving her head slightly. She has no visual changes, no confusion, no garbled speech. She has no focal numbness or weakness. She has difficulty standing walking due to the dizziness. She has no history of stroke or TIA. She denies recent illness. She has no nausea. Related Data Home Medications Medication Instructions Recorded Confirmed ALBUTEROL SULFATE (ACCUNEB) 3 ml INH Q 4-6 HR PRN ##0 05/11/12 CA PANTOTHENATE/FOLIC ACID/VIT 1 tab PO QDAY ##0 05/11/12 (MULTIVITAMIN) VITAMIN D (Vitamin D3) 2,000 iu PO QDAY ##0 05/11/12 LEVOTHYROXINE SODIUM 0.1 mg PO QDAY ##0 09/13/12 amlodipine 5 mg tablet (Norvasc) 10 mg PO QDAY ##0 09/13/12 hydrochlorothiazide 25 mg tablet 25 mg PO QDAY ##0 09/13/12 omeprazole 40 mg capsule,delayed 40 mg PO QDAY ##0 09/13/12 release venlafaxine 150 mg 300 mg PO QDAY ##0 09/13/12 capsule,extended release 24 hr fluticasone propionate 110 1 spray INH BID ##0 02/10/16 mcg/actuation HFA aerosol inhaler (Flovent HFA) Previous Rx's Medication Instructions Recorded nitrofurantoin 100 mg PO BID 7 days #0 caps 02/10/16 monohydrate/macrocrystals 100 mg capsule (Macrobid) phenazopyridine 200 mg tablet 200 mg PO TID PRN #6 tabs 02/10/16 (Pyridium) diazepam 2 mg tablet (Valium) 2 mg PO TID PRN dizziness #15 tabs 12/10/21 meclizine 25 mg tablet 25 mg PO QID PRN dizziness #60 tabs 12/10/21 Allergies Allergy/AdvReac Type Severity Reaction Status Date / Time ciprofloxacin [From CIPRO] Allergy Unknown Verified 12/09/21 20:21 codeine [CODEINE] Allergy Unknown HALLUCINATI Verified 12/09/21 20:21 ON/WOOZY lisinopril [LISINOPRIL] Allergy Unknown COUGH Verified 12/09/21 20:21 morphine [MORPHINE] Allergy Unknown HALLUCINATI Verified 12/09/21 20:21 ONS pramipexole [PRAMIPEXOLE] Allergy Unknown MULTIPLE Verified 12/09/21 20:21 UNPLEASANT SIDE EFFECTS Review of Systems Constitutional Constitutional: Reports system reviewed and no additional complaints, except as documented, Denies body ache(s), Denies chills, Denies fever(s) and Reports frequent falls Eyes Eyes: Denies blind spots, Denies blurry vision, Denies exophthalmos and Denies change in vision ENT Ears, Nose, Mouth, and Throat: Reports dizziness, Denies neck pain, Denies sore throat and Denies throat swelling Cardiovascular Cardiovascular: Denies chest pain, Denies pedal edema and Denies palpitations Respiratory Respiratory: Denies chest congestion and Denies cough Gastrointestinal Gastrointestinal: Denies abdominal pain, Denies dyspepsia, Denies nausea and Denies vomiting Genitourinary Genitourinary: Denies dysuria and Denies dysuria Musculoskeletal Musculoskeletal: Denies arthralgias and Denies neck pain Integumentary/Breasts Skin/Breast: Denies pruritus, Denies lesions and Denies rash Neurologic Neurologic: Denies confusion, Reports dizziness, Reports frequent falls and Denies memory loss Psychiatric Psychiatric: Denies confusion, Denies depression and Denies memory loss Endocrine Endocrine: Denies palpitations Hematologic/Lymphatic On Anticoagulants: No Allergic/Immunologic Allergic/Immunologic: Denies throat swelling Patient History Medical History (Updated 12/10/21 @ 00:18 by Robert Bates MD) Hyperlipidemia Hypertension Lung cancer Normal pressure hydrocephalus Uterine cancer Surgical History Status post Madhav fundoplication Social History Smoking Status: Never smoker Smoking Status: Never smoker Substance Use Type: does not use Exam Initial Vital Signs Initial Vital Signs: Vital Signs Pulse Oximetry 97 12/09/21 19:19 Const General: cooperative, healthy appearing, well developed, well groomed and No acute distress [facility] Head: normocephalic and atraumatic Nose: No nasal discharge Face and sinus: normal facial exam Mouth: oral mucosae normal Teeth and gingiva: dentition normal Throat: posterior oropharynx normal Eyes General: Yes appearance normal, both eyes and all related structures Neck Neck: normal visual inspection and No JVD Chest Chest: normal inspection of the chest Resp Auscultation: clear to auscultation bilaterally Cardio Rate: regular rate Rhythm: regular rhythm Heart Sounds: S1 normal, S2 normal and no murmurs GI Inspection: normal to inspection Palpation: soft, No no hepatosplenomegaly, No guarding and No mass Percussion: normal to percussion Back/Spine/Pelvis Back: normal to inspection and No back tenderness Cervical Spine: normal cervical lordosis Thoracic/Lumbar Spine: thoracic and lumbar spine normal to inspection Skin General: no rashes or lesions noted Neuro General: patient alert, patient awake, patient oriented x3, no focal motor deficits, not confused, not obtunded and [place] ( unobtainable due to extreme dizziness.) Cranial Nerves: CN's II-XI intact bilaterally Speech: speech normal Motor: muscle tone normal throughout Sensory Exam: no sensory deficits noted Psych Appearance: grossly normal Speech and Movement: speech and movement normal Scores NIH Stroke Scale Level of Conciousness: Alert, keenly responsive Ask month/age: Answers both questions correctly. Open/close eyes, close hand: Performs both tasks correctly Best gaze horizontal: Normal Visual parmar: No visual loss Facial palsy: Normal symetrical movement Left arm drift: No drift for full 10 sec Right arm drift: No drift for full 10 sec Left leg drift: No drift for full 5 sec Right leg drift: No drift for full 5 sec Limb ataxia: Present in one limb Sensory on face/arms/legs: Normal, no sensory loss Best language: No aphasia, normal Dysarthria: Normal Extinction or inattention: No abnormality Total NIH Stroke scale score: 1 Course Orders Ordered: ED Orders 12/09/21 19:23 XR chest 1V Stat 12/09/21 19:25 Complete Blood Count AUTO DIFF Stat Comprehensive Metabolic Panel Stat Lipase Stat Magnesium Stat Troponin & CK Cardiac Panel Stat 12/09/21 19:28 COVID19 -Nasal RAPID/Pre-Proc Stat 12/09/21 19:32 EKG-12 Lead Stat 12/09/21 19:59 CT head/brain wo con Stat 12/09/21 20:50 CT angio head and neck Stat Discontinued Medications Diazepam (Diazepam 2 Mg Tablet) 2 mg PO NOW ONE Stop: 12/09/21 21:47 Last Admin: 12/09/21 21:58 Dose: 2 mg Documented By: LINH Meclizine HCl (Meclizine Hcl 12.5 Mg Tablet) 25 mg PO NOW ONE Stop: 12/09/21 20:00 Last Admin: 12/09/21 20:21 Dose: 25 mg Documented By: LINH Vital Signs Vital signs: Vital Signs - 8 hr 12/09/21 19:21 12/09/21 19:19 12/09/21 19:20 Temperature 98.1 F Pulse Rate 61 57 L Respiratory Rate 22 Blood Pressure 139/72 Pulse Oximetry 99 97 97 Oxygen Delivery Method Room Air 12/09/21 19:20 12/09/21 19:30 12/09/21 20:00 Temperature Pulse Rate 51 L 51 L Respiratory Rate 37 H 37 H Blood Pressure 139/72 Pulse Oximetry 98 96 Oxygen Delivery Method 12/09/21 20:30 12/09/21 20:53 12/09/21 20:53 Temperature Pulse Rate 47 L 48 L Respiratory Rate 22 17 Blood Pressure 167/79 H Pulse Oximetry 97 98 Oxygen Delivery Method 12/09/21 21:08 12/09/21 21:30 12/09/21 22:00 Temperature Pulse Rate 54 L 48 L Respiratory Rate 19 Blood Pressure 172/83 H Pulse Oximetry 95 Oxygen Delivery Method 12/09/21 22:00 12/09/21 22:30 12/09/21 22:31 Temperature Pulse Rate 51 L 44 L Respiratory Rate 17 20 Blood Pressure 151/72 H Pulse Oximetry 95 Oxygen Delivery Method 12/09/21 22:31 12/09/21 23:00 12/09/21 23:00 Temperature Pulse Rate 44 L 45 L Respiratory Rate 17 12 Blood Pressure 168/81 H Pulse Oximetry 96 96 Oxygen Delivery Method 12/09/21 23:30 12/09/21 23:31 12/09/21 23:31 Temperature Pulse Rate 46 L 46 L Respiratory Rate 21 24 Blood Pressure 173/77 H Pulse Oximetry 96 95 Oxygen Delivery Method MDM - Dizziness Lab Data Result diagrams: 12/09/21 19:25 12/09/21 19:25 Labs: Lab Results 12/09/21 12/09/21 12/09/21 Range/Units 19:25 19:25 19:28 WBC 4.5 (4.5-11.0) X10^3/uL RBC 4.30 (4.0-5.2) X10^6/uL Hgb 13.5 (12.0-16.0) g/dL Hct 40.5 (36-46) % MCV 94.2 (80-100) fL MCH 31.3 (26-34) PG MCHC 33.3 (30-36) % RDW 13.1 (11.6-14.8) % Plt Count 248 (150-400) X10^3/uL Neut % (Auto) 50.3 (50-75) % Lymph % (Auto) 33.2 (25-40) % [place] % (Auto) 8.4 (3-14) % Eos % (Auto) 7.7 H (2-4) % Baso % (Auto) 0.4 (0-2) % Neut # (Auto) 2200 (0914-2358) /uL Lymph # (Auto) 1500 (2380-2596) /uL [place] # (Auto) 400 (0-900) /uL Eos # (Auto) 300 (0-450) /uL Baso # (Auto) 0 (0-100) /uL Sodium 137 (137-145) mmol/L Potassium 4.7 (3.4-5.1) mmol/L Chloride 103 (98-107) mmol/L Carbon Dioxide 26 (22-32) mmol/L BUN 21 H (7-17) mg/dL Creatinine 0.77 (0.52-1.04) mg/dL Estimated GFR > 60 (>60) mL/min BUN/Creatinine Ratio 27.3 H (6-22) Glucose 81 (80-110) mg/dL Calcium 9.8 (8.4-10.2) mg/dL Magnesium 1.8 (1.6-2.3) mg/dL Total Bilirubin 0.6 (0.2-1.3) mg/dL AST 34 (14-36) IU/L ALT 27 (<35) IU/L Alkaline Phosphatase 120 (38-126) U/L Total Creatine Kinase 25 L (30-135) U/L CK-MB (CK-2) TNP CK-MB (CK-2) Rel Index TNP Troponin I < 0.012 (0.01-0.034) ng/mL Total Protein 7.4 (6.3-8.2) g/dL Albumin 4.1 (3.5-5.0) g/dL Globulin 3.3 (1.7-4.1) g/dL Albumin/Globulin Ratio 1.2 (1.0-2.8) Lipase 39 (23-300) U/L SARS-CoV-2 (PCR) Negative (Negative) Imaging Data Chest x-ray: Radiologist's Impression: no acute findings CT scan - head: Radiologist's Impression: 1. No definite acute intracranial abnormality. ? 2. Mild ventriculomegaly appears similar to the prior study.? Right parietal PRODUCTION TEAM MEMBER shunt catheter appears stable in position. ? 3.? Mild to moderate chronic white matter small vessel ischemic changes and mild generalized cerebral volume loss.? ? CTA - brain/neck: Radiologist's Impression: 1. No definite acute intracranial abnormality. ? 2. No high-grade stenosis or occlusion of the central intracranial arteries. ? 3. No high-grade stenosis or occlusion of the head and neck arteries. ? 4. Mild ventriculomegaly appears similar to the prior studies, with the right PRODUCTION TEAM MEMBER shunt catheter stable in location. ECG Data Attestation: I personally reviewed and interpreted this ECG as follows: ( Sinus bradycardia rate 53 beats per minute. normal intervals. No ectopy. No acute ST T wave changes.) Discharge Plan Departure Patient Disposition: Home Clinical Impression: Dizziness Instructions: DI for Dizziness-Nonvertigo Activity Restrictions/Additional Instructions: Be sure you are hydrated at all times. Meclizine every 6 hours for dizziness. Valium 2 mg every 8 hours as needed for added treatment for dizziness. Contact your doctor tomorrow, if symptoms persist you should see a physical therapist. Prescriptions: New meclizine 25 mg tablet 25 mg PO QID PRN (Reason: dizziness) Qty: 60 0RF diazepam [Valium] 2 mg tablet 2 mg PO TID PRN (Reason: dizziness) Qty: 15 0RF No Action ALBUTEROL SULFATE (ACCUNEB) 3 ml INH Q 4-6 HR PRN Qty: 0 CA PANTOTHENATE/FOLIC ACID/VIT (MULTIVITAMIN) 1 tab PO QDAY Qty: 0 VITAMIN D (Vitamin D3) 2,000 iu PO QDAY Qty: 0 amlodipine [Norvasc] 5 MG tablet 10 mg PO QDAY Qty: 0 omeprazole 40 MG capsule,delayed release(DR/EC) 40 mg PO QDAY Qty: 0 hydrochlorothiazide 25 MG tablet 25 mg PO QDAY Qty: 0 LEVOTHYROXINE SODIUM 0.1 mg PO QDAY Qty: 0 venlafaxine 150 MG capsule,extended release 24hr 300 mg PO QDAY Qty: 0 fluticasone propionate [Flovent HFA] 12 GM HFA aerosol inhaler 1 spray INH BID Qty: 0 phenazopyridine [Pyridium] 200 MG tablet 200 mg PO TID PRNQty: 6 0RF nitrofurantoin monohyd/m-cryst [Macrobid] 100 MG capsule 100 mg PO BID 7 Days Qty: 0 0RF Referrals: Myla Edouard MD [Primary Care Provider] -
[2021-12-09 19:58] LABS: HEMOLYSIS 80 (0-50); Potassium 4.7 mmol/L (3.4-5.1)
--- NOTE | 2021-12-09 19:59 | DI.CT.S_ITS ---
PROCEDURE: CT HEAD/BRAIN WO CON INDICATIONS: Dizziness. History of PERFORMANCE TEST ENGINEER shunt. TECHNIQUE: Noncontrast 4.5 mm thick angled axial sections acquired from the foramen magnum to the vertex, with coronal and sagittal reformats. For radiation dose reduction, the following was used: automated exposure control, adjustment of mA and/or kV according to patient size. COMPARISON: [facility], CT, CT HEAD WITHOUT CONTRAST, 03/28/2019, 13:42. [facility], CT, CT HEAD/BRAIN WO CON, 09/27/2021, 20:07. FINDINGS: Image quality: Excellent. CSF spaces: Basal cisterns are patent. No extra-axial fluid collections. The ventricles are slightly enlarged but appear similar in size and shape compared to the prior study. There is a right parietal ventriculoperitoneal shunt catheter traversing the right parietal lobe and right lateral ventricle with the tip demonstrated in the anterior horn of the right lateral ventricle adjacent to the septum pellucidum, unchanged from the prior study. There is mild generalized cerebral volume loss, with resultant sulcal prominence. Brain: No intracranial hemorrhage, mass, or mass effect. There are subcortical, periventricular and deep white matter hypodensities consistent with mild to moderate chronic small vessel ischemic changes. The campbell-white matter junction appears preserved. There is intracranial internal carotid artery atherosclerosis. Skull and face: Calvarium and visualized facial bones demonstrate no acute fractures. There is a right posterior parietal daniella hole associated with the right PERFORMANCE TEST ENGINEER shunt catheter. Sinuses: Visualized sinuses demonstrate small air-fluid levels within the bilateral sphenoid sinuses suggestive of acute sinusitis. Mastoid air cells are clear. IMPRESSION: 1. No definite acute intracranial abnormality. 2. Mild ventriculomegaly appears similar to the prior study. Right parietal PERFORMANCE TEST ENGINEER shunt catheter appears stable in position. 3. Mild to moderate chronic white matter small vessel ischemic changes and mild generalized cerebral volume loss. Dictated by: Jonas Chadwick M.D. on 12/09/2021 at 20:32 Approved by: Jonas Chadwick M.D. on 12/09/2021 at 20:38
[2021-12-09 20:03] LABS: Troponin I < 0.012 ng/mL (0.01-0.034)
[2021-12-09] MEDS: MECLIZINE HCL 12.5 MG TABLET 25 MG PO (20:21)
--- NOTE | 2021-12-09 20:50 | DI.CT.S_ITS ---
PROCEDURE: CT ANGIO HEAD AND NECK INDICATIONS: persistent dizziness TECHNIQUE: After the administration of intravenous contrast, 1 mm thick sections acquired from the aortic arch through the [place] of [place]. Post-contrast 4.5 mm thick sections then re-acquired from the foramen magnum to the vertex. 3-dimensional vnnwdzk-cisxxtmqz-syrheaattc (MIP) and/or volume rendering reformats were acquired of the central intracranial vasculature and neck separately. For radiation dose reduction, the following was used: automated exposure control, adjustment of mA and/or kV according to patient size. COMPARISON: [facility], CT, CT HEAD WITHOUT CONTRAST, 03/28/2019, 13:42. [facility], CT, CT HEAD/BRAIN WO CON, 09/27/2021, 20:07. [facility], CT, CT HEAD/BRAIN WO CON, 12/09/2021, 20:08. FINDINGS: Image quality: Excellent. BRAIN: CSF spaces: Ventricles are mildly enlarged but appears similar to the prior studies. A right parietal ventriculoperitoneal shunt catheter is redemonstrated with the tip in the frontal horn of the right lateral ventricle. There is mild generalized cerebral volume loss with prominence of the sulci. Basal cisterns are patent. No extra-axial fluid collections. Brain: No intracranial hematoma collections, mass, or mass effect. There are subcortical, periventricular and deep white matter hypodensities consistent with auuw-kf-jegnjciz chronic small vessel ischemic changes. The campbell-white matter junction appears preserved. No abnormal intracranial enhancement. Skull and face: Calvarium and facial bones appear intact, without suspicious lesions. Orbits appear normal. Sinuses: Sinuses and mastoids are clear. HEAD CT ANGIOGRAPHY: Anterior circulation: Intracranial internal carotid arteries are normal in size and appear patent bilaterally. There is mild atherosclerotic calcification along the cavernous segments of the internal carotid arteries. The paired anterior cerebral arteries appear patent bilaterally. The anterior communicating artery also appears patent. The middle cerebral arteries appear patent bilaterally. No high-grade stenosis, occlusion, or filling defects. No cerebral aneurysms identified. Posterior circulation: Visualized portions of the vertebral arteries demonstrate normal caliber, and join to form a patent basilar artery. The posterior cerebral arteries appears patent bilaterally. No high-grade stenosis, occlusion, or filling defects. No cerebral aneurysms identified. NECK CT ANGIOGRAPHY: Carotid system: The great vessels demonstrate a conventional anatomy as they arise from the aortic arch. The origins of the common carotid arteries appear patent. The common carotid arteries demonstrate normal caliber and courses. The carotid bulbs appear widely patent. The internal carotid arteries demonstrate normal calibers and courses. Posterior circulation: The origins of the vertebral arteries both appear patent. The more superior extracranial portions of both vertebral arteries also demonstrate normal courses and calibers. They join to form a patent basilar artery. Soft tissues: Visualized thorax demonstrates confluent opacities within the left upper and lower lobes which are incompletely included on the current study. Bones: No suspicious bony lesions. Visualized cervical spine appears normally aligned. IMPRESSION: 1. No definite acute intracranial abnormality. 2. No high-grade stenosis or occlusion of the central intracranial arteries. 3. No high-grade stenosis or occlusion of the head and neck arteries. 4. Mild ventriculomegaly appears similar to the prior studies, with the right PAPER MILL MANAGER shunt catheter stable in location. Any quantitative measurements of stenosis were performed using NASCET criteria. Dictated by: Jonas Chadwick M.D. on 12/09/2021 at 21:34 Approved by: Jonas Chadwick M.D. on 12/09/2021 at 21:42
[2021-12-09] MEDS: diazePAM 2 MG TABLET PO (21:58)
== END 2021-12-10 00:20 | disposition home or self-care (01) ==
PROVIDERS: Emergency Provider Emergency Medicine; PCP Student in an Organized Health Care Education/Training Program
DX: R42 Dizziness and giddiness (principal); R07.9 Chest pain, unspecified; Z20.822 Contact with and (suspected) exposure to COVID-19
CPT/HCPCS: 36415; 70450; 70496; 70498; 71045; 80053; 82550; 83690; 83735; 84484; 85025; 87635; 93005; 93010; 99284; C9803; Q9967

== ENCOUNTER 2022-03-05 12:57 | Outpatient (CLI) | payer MEDICARE, OTHER, SELFPAY ==
[2022-03-05] VITALS (20 sets, daily range): BP systolic 118–162; BP diastolic 60–90; PULSE 50–64; RESP 11–20; TEMP 36.2–36.9; O2SAT 95–100; BMI 28.1
--- NOTE | 2022-03-05 | DI.RAD.S_ITS ---
PROCEDURE: FL INJECT SPINE FOR CT MYELO INDICATIONS: Radiculopathy, lumbar region COMPARISON: None. TECHNIQUE: The indications, alternatives, benefits, risks and complications of the procedure were explained to the patient. Written informed consent was obtained and placed in the chart. The patient was placed in a prone position on the fluoroscopy table, and a level was chosen for percutaneous access under fluoroscopic guidance. The skin was prepped and draped in a sterile fashion. After local anaesthetic, a spinal needle was then used to enter the intrathecal space, with return of clear cerebrospinal fluid. 15 mL of Isovue M-200 were administered intrathecally under fluoroscopic visualization. The needle was then withdrawn, and a bandage applied to the puncture site. Fluoroscopic spot films were then acquired in various positions. FINDINGS: Standing frontal, lateral, and oblique views demonstrate no significant central canal stenoses. Access level: L5-S1 Medications: 1% lidocaine for local anaesthesia. Complications: None. Patient was transferred to CT for subsequent CT myelogram. IMPRESSION: Successful fluoroscopically guided administration of iodinated contrast into the lumbar spine central canal for CT myelogram. Dictated by: Bo Lerma M.D. on 03/05/2022 at 21:21 Approved by: Bo Lerma M.D. on 03/05/2022 at 21:23
--- NOTE | 2022-03-05 | DI.CT.S_ITS ---
PROCEDURE: CT LUMBAR MYELOGRAM INDICATIONS: Radiculopathy, lumbar region TECHNIQUE: After the intrathecal administration of 15 mL intrathecal contrast, 3 mm thick sections acquired from T12 to the sacrum. Sagittal and coronal reformats were then constructed. For radiation dose reduction, the following was used: automated exposure control. COMPARISON: [facility], CT, CT LUMBAR SPINE WO CON, 07/19/2021, 10:33. [facility] [place] [facility], [place], XR LUMBAR SPINE WITH OBLIQUES PLUS FLEXION EXTENSION, 08/14/2021, 14:29. [facility], [place], [place] INJECT SPINE FOR CT MYELO, 03/05/2022, 14:35. FINDINGS: Image quality: Excellent. Bones: Postsurgical changes are again seen from posterior fusion extending from L4 through S1 with bilateral pedicle screws and interbody rods as well as disc spacers. There is mild levoconvex curvature of the lumbar spine centered at L3. Grade 1 anterolisthesis of L4 on L5 measuring 4 mm appears unchanged. There is mild 3 mm retrolisthesis of L2 on L3 and 4 mm retrolisthesis of L1 on L2, which also do not appear significantly changed. No suspicious bony lesions. No acute fractures. Cord: Visualized portions of the spinal cord are normal in size without extrinsic compression. Conus medullaris terminates at the L1-2 disc space level. No nerve root clumping to suggest arachnoiditis. Soft tissues: A spinal stimulator device is seen with pulse generator in the subcutaneous tissues of the right lower back and leads extending superiorly within the dorsal aspect of the bony spinal canal into the thoracic region. Small hiatal hernia. Mild aortic atherosclerotic calcifications. Mild grade 2 fatty infiltration of the paraspinous musculature. Cholecystectomy clips are present. A LATCHER shunt catheter is partially visualized in the right upper quadrant of the abdomen. No retroperitoneal masses. Degenerative endplate changes are seen throughout the included lower thoracic spine without high-grade spinal canal stenosis. T12-L1: Loss of disc space height with vacuum disc phenomenon and degenerative endplate changes including endplate sclerosis. Findings result in mild narrowing of the spinal canal and mild to moderate bilateral neural foraminal narrowing, which is similar when compared to the CT from 07/19/2021. L1-L2: Loss of disc space height with vacuum disc phenomenon and grade 1 retrolisthesis of L1 on L2 as well as mild bilateral facet hypertrophy. Findings result in mild to moderate spinal canal narrowing and moderate bilateral neural foraminal narrowing, which is similar when compared to the prior exam. L2-L3: Loss of disc space height with vacuum disc phenomenon, posterior disc-osteophyte complex, and grade 1 retrolisthesis of L2 on L3 as well as bilateral facet hypertrophy and buckling of the ligamentum flavum. Findings result in moderate to severe narrowing of the spinal canal and moderate bilateral neural foraminal narrowing, stable to mildly progressed when compared to the prior exam. L3-L4: Disc space narrowing and circumferential disc bulging/posterior disc-osteophyte complex as well as moderate bilateral facet hypertrophy and buckling of the ligamentum flavum. Findings result in moderate to severe narrowing of the spinal canal as well as moderate to severe bilateral neural foraminal narrowing, stable to mildly progressed when compared to the CT from 07/19/2021. L4-L5: Postsurgical changes from left hemilaminectomy and posterior fixation. There is unchanged grade 1 retrolisthesis of L4 on L5 and fusion of the right facet joint with mild hypertrophic bone formation. Findings result in mild to moderate bilateral foraminal stenosis and moderate narrowing of the spinal canal, which has not significantly changed when compared to the prior exam. L5-S1: Postsurgical changes are seen from posterior fixation. Hypertrophic facet changes are seen with partial osseous fusion. Findings result in mild to moderate narrowing of the bilateral neural foramina without significant spinal canal stenosis, similar when compared to the prior exam. IMPRESSION: 1. Postsurgical changes from L4 through S1 with intact hardware. 2. Multilevel moderate to severe degenerative disc disease and facet hypertrophy as described in detail in the body of the report. Mild levoconvex curvature of the lumbar spine and multilevel degenerative spondylolisthesis appear unchanged. 3. Moderate to severe narrowing of the spinal canal is seen at the L2-3 and L3-4 disc space levels, stable to minimally progressed when compared to the CT from 07/19/2021. 4. Moderate to severe bilateral neural foraminal narrowing is seen at the L3-4 level, which has not significantly changed. Approved by: Rao Burgess M.D. on 03/06/2022 at 13:45
[2022-03-05 14:24] LABS: Prothrombin Time 11.1 SECONDS (10.1-12.7)
[2022-03-05] MEDS: fentaNYL 100 MCG/2 ML INJ IV (15:28)
[2022-03-05] MEDS: fentaNYL 100 MCG/2 ML INJ 50 MCG IV (16:06)
[2022-03-05] MEDS: LACTATED RINGERS 1,000 ML 42 ML IV (16:41)
== END 2022-03-05 18:29 | disposition home or self-care (01) ==
PROVIDERS: Radiology Body Imaging; PCP Student in an Organized Health Care Education/Training Program; Referring Provider Physical Medicine & Rehabilitation; Visit Provider Physical Medicine & Rehabilitation
DX: M54.16 Radiculopathy, lumbar region (principal)
CPT/HCPCS: 62284; 72133; 77003; 85610; J3010

== ENCOUNTER → 2022-03-06 15:49 | Outpatient (CLI) | payer MEDICARE, OTHER, SELFPAY ==
--- NOTE | 2022-03-06 | DI.US.S_ITS ---
PROCEDURE: US PERIPH VENOUS LOW EXTREM RT INDICATIONS: SWELLING TECHNIQUE: Real-time imaging, as well as color and pulse Doppler interrogation, were performed of the lower extremity deep veins from the inguinal ligament to the popliteal fossa. COMPARISON: None. FINDINGS: The common femoral, femoral and popliteal veins are normally compressible, and free of intraluminal thrombus. Color and pulse Doppler demonstrate normal phasic intraluminal flow. There is normal augmentation response to distal compression maneuver. IMPRESSION: No deep vein thrombosis of the right lower extremity. Dictated by: Shivani Mendoza M.D. on 03/06/2022 at 16:57 Approved by: Shivani Mendoza M.D. on 03/06/2022 at 16:58
== END ==
PROVIDERS: PCP Student in an Organized Health Care Education/Training Program; Referring Provider Student in an Organized Health Care Education/Training Program; Visit Provider Student in an Organized Health Care Education/Training Program
DX: M79.89 Other specified soft tissue disorders (principal)
CPT/HCPCS: 93971

== ENCOUNTER → 2022-03-20 12:03 | Outpatient (CLI) | payer MEDICARE, OTHER, SELFPAY ==
--- NOTE | 2022-03-20 | DI.CT.S_ITS ---
PROCEDURE: CT LUMBAR SPINE WO CON INDICATIONS: Spinal stenosis TECHNIQUE: Noncontrast 0.8 mm thick sections acquired from the T12 level to the sacrum. Sagittal and coronal reformats were constructed. For radiation dose reduction, the following was used: automated exposure control. COMPARISON: [facility], CT, CT LUMBAR MYELOGRAM, 03/05/2022, 15:14. [facility], [place], US PERIPH VENOUS LOW EXTREM RT, 03/06/2022, 16:19. [facility], CT, CT LUMBAR SPINE WO CON, 07/19/2021, 10:33. FINDINGS: Image quality: Excellent. Bones: No acute vertebral body compression fractures. No suspicious lytic or blastic bony lesions. Postoperative changes are seen, with bilateral pedicle screws at L4, L5, and S1. Mild levoconvex scoliotic curvature is noted. Mild retrolisthesis can be seen at L1-L2 and L2-L3. Mild anterolisthesis is seen at L4-L5. No associated pars defects are seen. There is a thoracic spine stimulator partially seen, which enters the spinal canal from posteriorly at the T12-L1 level. Multiple levels of lumbar spine degenerative change are seen, which are unchanged compared to the prior recent CT myelogram examination. There is partial visualization right hip arthroplasty hardware. Soft tissues: No retroperitoneal masses or hematomas. Visualized aorta is normal in caliber. Cholecystectomy clips are seen. A catheter can be seen adjacent to the right kidney. Colonic diverticulosis is seen, without findings of active diverticulitis. IMPRESSION: Stable postoperative and degenerative changes are seen. Dictated by: Ta Shell M.D. on 03/20/2022 at 13:47 Approved by: Ta Shell M.D. on 03/20/2022 at 13:52
== END ==
PROVIDERS: PCP Student in an Organized Health Care Education/Training Program; Referring Provider Orthopaedic Surgery Orthopaedic Surgery of the Spine; Visit Provider Orthopaedic Surgery Orthopaedic Surgery of the Spine
DX: M48.062 Spinal stenosis, lumbar region with neurogenic claudication (principal); M47.816 Spondylosis without myelopathy or radiculopathy, lumbar region; K57.90 Diverticulosis of intestine, part unspecified, without perforation or abscess without bleeding; Z98.1 Arthrodesis status; Z96.82 Presence of neurostimulator
CPT/HCPCS: 72131

== ENCOUNTER → 2022-04-05 12:35 | Outpatient (CLI) | payer MEDICARE, OTHER, SELFPAY ==
--- NOTE | 2022-04-05 12:36 | DI.CT.S_ITS ---
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 For radiation dose reduction, the following was used: automated exposure control, adjustment of mA and/or kV according to patient size. COMPARISON: [facility], CT, CT HEAD WITHOUT CONTRAST, 03/28/2019, 13:42. [facility], CT, CT HEAD/BRAIN WO CON, 09/27/2021, 20:07. [facility], CT, CT HEAD/BRAIN WO CON, 12/09/2021, 20:08. FINDINGS: Image quality: Excellent. CSF spaces: There is a right parietal approach ventriculostomy catheter seen. The tip is stable, residing within the anterior horn of the right lateral ventricle. Basal cisterns are patent. No extra-axial fluid collections. The ventricles are mildly prominent and stable from the prior. Brain: No intracranial bleeds or masses. There is cerebral volume loss for age, with resultant ventricular and sulcal prominence. There are periventricular and deep white matter chronic small vessel ischemic changes. There is intracranial internal carotid artery atherosclerosis. Skull and face: Calvarium and visualized facial bones appear intact, without suspicious lesions. Sinuses: Visualized sinuses and mastoids are clear. IMPRESSION: Stable right parietal approach ventriculostomy catheter. Stable mild ventriculomegaly. Dictated by: Ta Shell M.D. on 04/05/2022 at 12:22 Approved by: Ta Shell M.D. on 04/05/2022 at 12:24
== END ==
PROVIDERS: PCP Student in an Organized Health Care Education/Training Program; Referring Provider Neurological Surgery; Visit Provider Neurological Surgery
DX: G93.89 Other specified disorders of brain (principal); I65.29 Occlusion and stenosis of unspecified carotid artery; Z98.2 Presence of cerebrospinal fluid drainage device
CPT/HCPCS: 70450

== ENCOUNTER → 2022-05-12 12:48 | Outpatient (CLI) | payer MEDICARE, OTHER, SELFPAY ==
--- NOTE | 2022-05-12 | DI.CT.S_ITS ---
PROCEDURE: CT THORACIC SPINE WO CON INDICATIONS: WEAKNESS OF LOWER EXTREMETIES TECHNIQUE: Noncontrast 3 mm thick sections acquired through the region of interest in the thoracic spine. Sagittal and coronal reformats were then constructed. For radiation dose reduction, the following was used: automated exposure control. COMPARISON: None. FINDINGS: Image quality: Excellent. Bones: There is normal overall bony alignment. No acute vertebral body compression fractures. No suspicious sclerotic or lytic bony lesions. Central spinal canal is of normal overall caliber. Interspinous lead terminates in the spinal canal posterior to the T7-8 disc. Moderate disc height loss at T7 through L2. Grade 1 retrolisthesis of L1 on L2. Soft tissues: No paravertebral masses or hematomas. Visualized posteromedial lungs appear clear. Moderate hiatal hernia. IMPRESSION: 1. Central spinal canal is of normal overall caliber. 2. Moderate multilevel degenerative disc disease at T7 through L2. Dictated by: Tyler Bridges M.D. on 05/12/2022 at 14:21 Approved by: Tyler Bridges M.D. on 05/12/2022 at 14:24
== END ==
PROVIDERS: PCP Student in an Organized Health Care Education/Training Program; Referring Provider Orthopaedic Surgery Orthopaedic Surgery of the Spine; Visit Provider Orthopaedic Surgery Orthopaedic Surgery of the Spine
DX: M41.9 Scoliosis, unspecified (principal); R29.898 Other symptoms and signs involving the musculoskeletal system; M51.35 Other intervertebral disc degeneration, thoracolumbar region; Z13.820 Encounter for screening for osteoporosis; Z78.0 Asymptomatic menopausal state; Z90.710 Acquired absence of both cervix and uterus; Z85.42 Personal history of malignant neoplasm of other parts of uterus; Z85.118 Personal history of other malignant neoplasm of bronchus and lung
CPT/HCPCS: 72128; 77080

== ENCOUNTER 2022-09-26 14:59 | Emergency (ER) | payer MEDICARE, OTHER, SELFPAY ==
[2022-09-26] VITALS (8 sets, daily range): BP systolic 116–162; BP diastolic 76–93; PULSE 68–78; RESP 16–24; TEMP 37.2; O2SAT 96–99; BMI 31.6
--- NOTE | 2022-09-26 15:21 | ED_ITS ---
HPI - Back Pain/Injury General Chief Complaint: Back Pain/Injury Stated Complaint: Abd Pain/R Flank Time Seen by Provider: 09/26/22 15:21 History of Present Illness HPI Narrative: 82-year-old female nonsmoker with history of hypertension and chronic back problems presents by EMS for evaluation of a relatively sudden onset right flank pain with radiation around her side. She states that she has worsening pain with motion and improvement with rest. She denies nausea or vomiting. She states her last bowel movement was 4 days ago but that is not necessarily abnormal for her. She denies any fall, trauma or injury. She denies fever, chills. She denies urinary complaints such as dysuria, frequency or urgency. Related Data Home Medications Medication Instructions Recorded Confirmed ALBUTEROL SULFATE (ACCUNEB) 3 ml INH Q 4-6 HR PRN ##0 05/11/12 CA PANTOTHENATE/FOLIC ACID/VIT 1 tab PO QDAY ##0 05/11/12 (MULTIVITAMIN) VITAMIN D (Vitamin D3) 2,000 iu PO QDAY ##0 05/11/12 LEVOTHYROXINE SODIUM 0.1 mg PO QDAY ##0 09/13/12 amlodipine 5 mg tablet (Norvasc) 10 mg PO QDAY ##0 09/13/12 hydrochlorothiazide 25 mg tablet 25 mg PO QDAY ##0 09/13/12 omeprazole 40 mg capsule,delayed 40 mg PO QDAY ##0 09/13/12 release venlafaxine 150 mg 300 mg PO QDAY ##0 09/13/12 capsule,extended release 24 hr fluticasone propionate 110 1 spray INH BID ##0 02/10/16 mcg/actuation HFA aerosol inhaler (Flovent HFA) Previous Rx's Medication Instructions Recorded nitrofurantoin 100 mg PO BID 7 days #0 caps 02/10/16 monohydrate/macrocrystals 100 mg capsule (Macrobid) phenazopyridine 200 mg tablet 200 mg PO TID PRN #6 tabs 02/10/16 (Pyridium) diazepam 2 mg tablet (Valium) 2 mg PO TID PRN dizziness #15 tabs 12/10/21 meclizine 25 mg tablet 25 mg PO QID PRN dizziness #60 tabs 12/10/21 ketorolac 10 mg tablet 10 mg PO Q6H PRN pain #14 tabs 09/26/22 lidocaine 5 % topical patch 1 patch topical DAILY #15 ea 09/26/22 (Lidoderm) Allergies Allergy/AdvReac Type Severity Reaction Status Date / Time ciprofloxacin [From CIPRO] Allergy Unknown Verified 03/05/22 14:02 codeine [CODEINE] Allergy Unknown HALLUCINATI Verified 03/05/22 14:02 ON/WOOZY lisinopril [LISINOPRIL] Allergy Unknown COUGH Verified 03/05/22 14:02 morphine [MORPHINE] Allergy Unknown HALLUCINATI Verified 03/05/22 14:02 ONS pramipexole [PRAMIPEXOLE] Allergy Unknown MULTIPLE Verified 03/05/22 14:02 UNPLEASANT SIDE EFFECTS Review of Systems Review of Systems Narrative: GENERAL: Denies chills, fatigue, malaise, fever, sweats. HEENT: Denies sinus pain, ear pain, sore throat, difficulty swallowing, dizz iness. RESPIRATORY: Denies dyspnea, cough, wheezing, hemoptysis, sputum. CARDIOVASCULAR: Denies chest pain, palpitations, orthopnea, edema, GASTROINTESTINAL: See HPI : Denies dysuria, frequency, incontinence, hematuria, urinary retention. MUSCULOSKELETAL: denies weakness, joint pain, or bony pain SKIN: Denies rash, skin lesions, or other NEUROLOGIC: Denies weakness, headache, numbness, change in speech, confusion, seizures, incoordination. PSYCHIATRIC: No concerning psychosocial issues. 12 point review of systems is negative except for those stated above Patient History Medical History Hyperlipidemia Hypertension Lung cancer Normal pressure hydrocephalus Uterine cancer Surgical History Status post Madhav fundoplication Social History household members: spouse Smoking Status: Never smoker alcohol intake: never Smoking Status: Never smoker Substance Use Type: does not use Exam Narrative Exam Narrative: GENERAL: [82] year old patient appears stated age. Well-developed patient, in mild distress. HEAD: Atraumatic. Normocephalic. EYES: Pupils equal round and reactive. Extraocular motions intact. No scleral icterus. No injection or drainage. ENT: Nose without bleeding, purulent drainage. Throat without erythema, tonsillar hypertrophy or exudate. Airway patent. NECK: Trachea midline. Non tender CARDIOVASCULAR: Regular rate and rhythm without murmurs, gallops, or rubs. RESPIRATORY: Clear to auscultation. Breath sounds equal bilaterally. No wheezes, rales, or rhonchi. GASTROINTESTINAL: Abdomen soft, non-tender, nondistended. EXTREMITIES: No edema or joint tenderness. BACK: Nontender without deformity or crepitance. No flank tenderness. NEURO: AOx3. SKIN: No rash or erythema of visible areas Initial Vital Signs Initial Vital Signs: Vital Signs Temperature 98.9 F 09/26/22 15:16 Pulse Rate 68 09/26/22 15:16 Respiratory Rate 16 09/26/22 15:16 Blood Pressure 162/93 H 09/26/22 15:16 Pulse Oximetry 99 09/26/22 15:16 Oxygen Delivery Method Room Air 09/26/22 15:16 Course Orders Ordered: ED Orders 09/26/22 15:09 Urinalysis and Microscopic Stat Urine Culture Stat 09/26/22 15:13 EKG-12 Lead Stat 09/26/22 15:21 CT kidney ureter bladder (KUB) Stat 09/26/22 15:25 Complete Blood Count AUTO DIFF Stat Comprehensive Metabolic Panel Stat Lipase Stat 09/26/22 16:35 CT angio chest PE protocol Stat Ondansetron HCl (Ondansetron 4 Mg Odt) 4 mg PO NOW PRN PRN Reason: Nausea And Vomiting Ondansetron HCl (Ondansetron 4 Mg/2 Ml Inj) 4 mg IV NOW PRN PRN Reason: Nausea And Vomiting Discontinued Medications Ketorolac Tromethamine (Ketorolac 30 Mg/Ml Vial) 15 mg IV NOW ONE Stop: 09/26/22 18:22 Last Admin: 09/26/22 18:35 Dose: 15 mg Lidocaine (Lidocaine Patch 1 Each Adh..Patch) 1 each TOP NOW ONE Stop: 09/26/22 18:22 Last Admin: 09/26/22 18:37 Dose: 1 each Vital Signs Vital signs: Vital Signs - 8 hr 09/26/22 15:16 09/26/22 17:39 09/26/22 17:40 Temperature 98.9 F Pulse Rate 68 73 72 Respiratory Rate 16 24 21 Blood Pressure 162/93 H Pulse Oximetry 99 98 98 Oxygen Delivery Method Room Air 09/26/22 17:40 09/26/22 18:00 09/26/22 19:30 Temperature Pulse Rate 76 75 Respiratory Rate 20 19 Blood Pressure 150/91 H 119/76 Pulse Oximetry 97 97 Oxygen Delivery Method Room Air MDM - Back Pain/Injury Lab Data 09/26/22 15:25 09/26/22 15:25 Labs: Lab Results 09/26/22 09/26/22 09/26/22 Range/Units 15:09 15:25 15:25 WBC 6.0 (4.5-11.0) X10^3/uL RBC 4.31 (4.0-5.2) X10^6/uL Hgb 12.9 (12.0-16.0) g/dL Hct 39.1 (36-46) % MCV 90.8 (80-100) fL MCH 29.9 (26-34) PG MCHC 32.9 (30-36) % RDW 15.4 H (11.6-14.8) % Plt Count 251 (150-400) X10^3/uL Neut % (Auto) 70.2 (50-75) % Lymph % (Auto) 19.2 L (25-40) % [place] % (Auto) 6.7 (3-14) % Eos % (Auto) 3.1 (2-4) % Baso % (Auto) 0.8 (0-2) % Neut # (Auto) 4200 (1694-2073) /uL Lymph # (Auto) 1200 (8063-8736) /uL [place] # (Auto) 400 (0-900) /uL Eos # (Auto) 200 (0-450) /uL Baso # (Auto) 0 (0-100) /uL Sodium 137 (137-145) mmol/L Potassium 4.3 (3.4-5.1) mmol/L Chloride 101 (98-107) mmol/L Carbon Dioxide 30 (22-32) mmol/L BUN 18 H (7-17) mg/dL Creatinine 0.59 (0.52-1.04) mg/dL Estimated GFR > 60 (>60) mL/min BUN/Creatinine Ratio 30.5 H (6-22) Glucose 99 (80-110) mg/dL Calcium 10.1 (8.4-10.2) mg/dL Total Bilirubin 0.4 (0.2-1.3) mg/dL AST 23 (14-36) IU/L ALT 22 (<35) IU/L Alkaline Phosphatase 175 H (38-126) U/L Total Protein 7.2 (6.3-8.2) g/dL Albumin 4.3 (3.5-5.0) g/dL Globulin 2.9 (1.7-4.1) g/dL Albumin/Globulin Ratio 1.5 (1.0-2.8) Lipase 22 L (23-300) U/L Urine Color Yellow Urine Appearance Clear Urine pH 8.0 (4.5-8.0) Ur Specific [place] 1.015 (1.000-1.035) Urine Protein Negative (Negative) Urine Glucose (UA) Negative (Negative) g/dL Urine Ketones Negative (NEGATIVE) Urine Occult Blood Negative (Negative) Urine Nitrate Negative (Negative) Urine Bilirubin Negative (NEGATIVE) Urine Urobilinogen 0.2 (0.2) E.U./dL Ur Leukocyte Esterase Trace H (NEGATIVE) Urine RBC 0-1/hpf (0-5/HPF) Urine WBC 0-1/hpf (0-5/HPF) Ur Squamous Epith Cells 0-1 /hpf (0-5/HPF) Urine Bacteria Occasional (0-1) (None) Ur Culture Indicated? Specimen cultured MDM Narrative Medical decision making narrative: [82] year old patient presents with sudden onset right flank pain Multiple etiologies for patient's symptoms considered including, but not limited to: [Kidney stone versus pyelonephritis versus bowel obstruction versus bowel gas pain versus radicular pain versus shingles versus other] Prior Charts reviewed in our EMR Primary Historian: patient Labs reviewed and interpreted by myself: No significant abnormal findings Imaging reviewed: CT of abdomen with large stool burden but no other significant finding Patient's symptoms improved over duration of stay with above-stated therapies. Findings and discharge diagnosis discussed with patient/family followed by verbalization of understanding Return precautions discussed with patient/family whom verbalize understanding of diagnosis and plan Discharge Plan Departure Patient Disposition: Home Clinical Impression: Acute flank pain Instructions: DI for Flank Pain Activity Restrictions/Additional Instructions: *You have been diagnosed with [ abdominal pain due to constipation ] *What to do: *Take over the counter medications as directed: 1. Metamucil - is a bulk forming laxative and adds fiber 2. Colace - softens your stool 3. Dulcolax suppository - stimulates your bowels *Follow up with your primary care provider in 2-3 days, call for a ppointment *Return to ER if you should have any new, worsening or concerning symptoms *Drink plenty of water and eat foods high in fiber *Stay as active as you can as this helps move your bowels as well Prescriptions: New ketorolac 10 mg tablet 10 mg PO Q6H PRN (Reason: pain) Qty: 14 0RF lidocaine [Lidoderm] 5 % adhesive patch,medicated 1 patch TOP DAILY Qty: 15 0RF Rx Instructions: leave on most painful area for 12 hrs No Action ALBUTEROL SULFATE (ACCUNEB) 3 ml INH Q 4-6 HR PRN Qty: 0 CA PANTOTHENATE/FOLIC ACID/VIT (MULTIVITAMIN) 1 tab PO QDAY Qty: 0 VITAMIN D (Vitamin D3) 2,000 iu PO QDAY Qty: 0 amlodipine [Norvasc] 5 MG tablet 10 mg PO QDAY Qty: 0 omeprazole 40 MG capsule,delayed release(DR/EC) 40 mg PO QDAY Qty: 0 hydrochlorothiazide 25 MG tablet 25 mg PO QDAY Qty: 0 LEVOTHYROXINE SODIUM 0.1 mg PO QDAY Qty: 0 venlafaxine 150 MG capsule,extended release 24hr 300 mg PO QDAY Qty: 0 fluticasone propionate [Flovent HFA] 12 GM HFA aerosol inhaler 1 spray INH BID Qty: 0 phenazopyridine [Pyridium] 200 MG tablet 200 mg PO TID PRNQty: 6 0RF nitrofurantoin monohyd/m-cryst [Macrobid] 100 MG capsule 100 mg PO BID 7 Days Qty: 0 0RF meclizine 25 mg tablet 25 mg PO QID PRN (Reason: dizziness) Qty: 60 0RF diazepam [Valium] 2 mg tablet 2 mg PO TID PRN (Reason: dizziness) Qty: 15 0RF Referrals: Myla Edouard MD [Primary Care Provider] - Stand Alone Forms: Patient Portal/API
--- NOTE | 2022-09-26 15:21 | DI.CT.S_ITS ---
PROCEDURE: CT KIDNEY URETER BLADDER (KUB) INDICATIONS: severe R flank pain with radiation to groin TECHNIQUE: Axial sections were acquired from the lung bases to the pubic symphysis. Coronal and sagittal reformats were performed. For radiation dose reduction, the following was used: automated exposure control, adjustment of mA and/or kV according to patient size. COMPARISON: [facility], CT, CT CHEST ABDOMEN PELVIS WITH CONTRAST, 01/01/2021, 13:53. [facility], CT, CT ABDOMEN PELVIS WITH CONTRAST, 08/23/2022, 22:29. [facility], CT, CT ABDOMEN PELVIS WITH CONTRAST, 06/27/2022, 11:58. FINDINGS: Image quality: Excellent. Lung bases: Unremarkable. There is a moderate-sized hiatal hernia. There is a nodular density in the right lower lobe adjacent to the right border of the left atrium, probably dilated infundibulum of the right inferior pulmonary vein. Heart: No significant findings. URINARY: Right Kidney: No stones or hydronephrosis. Right Ureter: No hydroureter. Left Kidney: No stones or hydronephrosis. Left Ureter: No hydroureter. Bladder: Normal wall thickness. No stones. ABDOMEN: Liver: Unremarkable. Gallbladder: Surgically absent. Biliary ducts: Unremarkable. Pancreas: Unremarkable. Spleen: Unremarkable. Adrenal Glands: Unremarkable. Stomach and Bowel: Stomach, small bowel loops, and colon are normal in caliber. There is a large amount of stool in colon. There is sigmoid diverticulosis without acute diverticulitis. Peritoneum: No abnormal intraperitoneal fluid. No free air. Ventral Wall: No hernia. Abdominal Nodes: No enlarged retroperitoneal or mesenteric lymph nodes. Vessels: Aorta and inferior vena cava are normal in size. PELVIS: Pelvic Organs: Unremarkable. Pelvic Nodes: Unremarkable. Miscellaneous: No inguinal hernias are seen. Bones: Extensive degenerative and postsurgical changes in lumbar spine. Right hip arthroplasty. IMPRESSION: 1. No renal stone or hydronephrosis. 2. Diverticulosis without diverticulitis. 3. A large amount of stool in colon. 4. Moderate-sized hiatal hernia. Dictated by: Polina Miranda M.D. on 09/26/2022 at 16:25 Approved by: Polina Miranda M.D. on 09/26/2022 at 16:35
[2022-09-26 15:22] LABS: Appearance Urine UA CLEAR; Bilirubin Urine UA NEGATIVE (NEGATIVE); Color Urine UA YELLOW; Glucose Urine UA NEGATIVE (Negative); Ketones Urine UA NEGATIVE (NEGATIVE); Leukocyte Esterase Urine UA TRACE (NEGATIVE); Nitrite Urine UA NEGATIVE (Negative); Occult Blood Urine UA NEGATIVE (Negative); Protein Urine UA NEGATIVE (Negative); Specific Gravity Urine UA 1.015 (1.000-1.035); Urobilinogen Urine UA 0.2 E.U./dL (0.2)
[2022-09-26 15:29] LABS: Bacteria Urine Occasional (0-1); Culture Indicated Urine Specimen Cultured; RBC Urine 0-1/HPF (0-5/HPF); Squamous Epithelial Cell Urine 0-1 /HPF (0-5/HPF); WBC Urine 0-1/HPF (0-5/HPF)
[2022-09-26 15:53] LABS: Add Manual Diff / Slide Review NO; Basophils Absolute Auto 0 /uL (0-100); Basophils Percent Auto 0.8 % (0-2); Eosinophils Absolute Auto 200 /uL (0-450); Eosinophils Percent Auto 3.1 % (2-4); Hematocrit 39.1 % (36-46); Hemoglobin 12.9 g/dL (12.0-16.0); Lymphocytes Absolute Auto 1200 /uL (1100-4500); Lymphocytes Percent Auto 19.2 % (25-40); Mean Corpuscular HGB Conc 32.9 % (30-36); Mean Corpuscular Hemoglobin 29.9 PG (26-34); Mean Corpuscular Volume 90.8 fL (80-100); Monocytes Absolute Auto 400 /uL (0-900); Monocytes Percent Auto 6.7 % (3-14); Neutrophils Absolute Auto 4200 /uL (1500-7000); Neutrophils Percent Auto 70.2 % (50-75); Platelet Count 251 X10^3/uL (150-400); Red Blood Cell Count 4.31 X10^6/uL (4.0-5.2); Red Cell Distribution Width 15.4 % (11.6-14.8)
[2022-09-26 15:59] LABS: Alanine Aminotransferase 22 IU/L (<35); Albumin 4.3 g/dL (3.5-5.0); Albumin Globulin Ratio 1.5 (1.0-2.8); Alkaline Phosphatase 175 U/L (38-126); Aspartate Aminotransferase 23 IU/L (14-36); BUN Creatinine Ratio 30.5 (6-22); Bilirubin Total 0.4 mg/dL (0.2-1.3); Blood Urea Nitrogen 18 mg/dL (7-17); Calcium 10.1 mg/dL (8.4-10.2); Carbon Dioxide 30 mmol/L (22-32); Chloride 101 mmol/L (98-107); Estimated Glomerular Filt Rate > 60 mL/min (>60); Globulin 2.9 g/dL (1.7-4.1); Glucose 99 mg/dL (80-110); HEMOLYSIS < 15 (0-50); Lipase 22 U/L (23-300); Potassium 4.3 mmol/L (3.4-5.1); Sodium 137 mmol/L (137-145); Total Protein 7.2 g/dL (6.3-8.2)
--- NOTE | 2022-09-26 16:35 | DI.CT.S_ITS ---
PROCEDURE: CT ANGIO CHEST PE PROTOCOL INDICATIONS: question PE on imaging, per radiology TECHNIQUE: After the administration of intravenous contrast, 2 mm thick sections acquired from the pulmonary apices to the posterior costophrenic angles. 3-dimensional maximum intensity projection (MIP) coronal and sagittal reformats were then acquired through the thorax. For radiation dose reduction, the following was used: automated exposure control, adjustment of mA and/or kV according to patient size. COMPARISON: None. FINDINGS: Image quality: Excellent. Pulmonary arteries: Pulmonary arteries are normal in size, and demonstrate no intraluminal filling defects to suggest central pulmonary embolism. Lungs and pleura: Right upper lobe discoid atelectasis. There is a 2 mm calcified nodule in the left upper lobe. No pleural effusions or pneumothorax. Central and peripheral airways are patent. Mediastinum: Heart size is normal, without pericardial effusion. Mild coronary artery calcification. No mediastinal or hilar adenopathy. Thoracic aorta is normal in caliber and enhancement. Esophagus is normal in caliber. There is a moderate-sized hiatal hernia. Bones and chest wall: No suspicious bony lesions. Ribs and thoracic spine appear intact throughout. There is a 1.2 cm right thyroid nodule. No axillary or supraclavicular adenopathy. Abdomen: Visualized upper abdominal solid organs appear normal in the early arterial phase of enhancement. IMPRESSION: 1. No evidence for pulmonary embolism. 2. No pulmonary infiltrate or consolidation. 3. Right upper lobe discoid atelectasis. 4. Mild cardiomegaly. 5. A moderate-sized hiatal hernia. 6. A 1.2 cm right thyroid nodule. Consider nonurgent ultrasound follow-up. Dictated by: Polina Miranda M.D. on 09/26/2022 at 17:38 Approved by: Polina Miranda M.D. on 09/26/2022 at 17:45
[2022-09-26] MEDS: KETOROLAC 30 MG/ML VIAL 15 MG IV (18:35)
[2022-09-26] MEDS: LIDOCAINE PATCH 1 EACH ADH..PATCH TOP (18:37)
== END 2022-09-26 20:33 | disposition home or self-care (01) ==
PROVIDERS: Emergency Provider Emergency Medicine; PCP Student in an Organized Health Care Education/Training Program
DX: R10.9 Unspecified abdominal pain (principal)
CPT/HCPCS: 36415; 71275; 74176; 80053; 81001; 83690; 85025; 87086; 96374; 99283; 99284; J1885; Q9967

== ENCOUNTER → 2023-05-04 10:12 | Outpatient (CLI) | payer MEDICARE, OTHER, SELFPAY ==
--- NOTE | 2023-05-04 | DI.CT.S_ITS ---
PROCEDURE: CT HEAD/BRAIN WO CON INDICATIONS: HYDROCEPHALUS TECHNIQUE: Noncontrast 4.5 mm thick angled axial sections acquired from the foramen magnum to the vertex, with coronal and sagittal reformats. For radiation dose reduction, the following was used: automated exposure control, adjustment of mA and/or kV according to patient size. COMPARISON: [facility], MR, MR BRAIN WITH/WITHOUT CONTRAST, 04/29/2018, 17:47. [facility], CT, CT HEAD WITHOUT CONTRAST, 03/28/2019, 13:42. [facility], CT, CT ANGIO HEAD AND NECK, 12/09/2021, 20:57. [facility], CT, CT HEAD/BRAIN WO CON, 04/05/2022, 13:06. FINDINGS: Image quality: Diagnostic. CSF spaces: A right parietal approach ventriculostomy catheter is seen. The tip of the catheter can be seen within the anterior aspect of the right lateral ventricle. The lateral ventricles demonstrate stable mild enlargement, without significant change from the prior CT. Basal cisterns are patent. No extra-axial fluid collections. Brain: No intracranial bleeds or masses. There is cerebral volume loss for age, with resultant ventricular and sulcal prominence. There are periventricular and deep white matter chronic small vessel ischemic changes. There is intracranial internal carotid artery atherosclerosis. Skull and face: Calvarium and visualized facial bones appear intact, without suspicious lesions. Sinuses: Visualized sinuses and mastoids are clear. IMPRESSION: Stable mild hydrocephalus. Stable right parietal approach ventriculostomy catheter. Dictated by: Ta Shell M.D. on 05/04/2023 at 9:40 Approved by: Ta Shell M.D. on 05/04/2023 at 9:42
== END ==
PROVIDERS: PCP Student in an Organized Health Care Education/Training Program; Referring Provider Physician Assistant; Visit Provider Physician Assistant
DX: G43.809 Other migraine, not intractable, without status migrainosus (principal); G91.9 Hydrocephalus, unspecified; Z98.2 Presence of cerebrospinal fluid drainage device
CPT/HCPCS: 70450

== ENCOUNTER → 2024-03-08 18:58 | Outpatient (CLI) | payer MEDICARE, SELFPAY ==
[2024-03-08 20:01] LABS: Influenza A - CEPHEID Flu A NEGATIVE (NEGATIVE); Influenza B - CEPHEID Flu B NEGATIVE (NEGATIVE); Respiratory Syncytial Virus Negative (Negative)
[2024-03-08 20:04] LABS: COVID-19 CEPHEID 4-PLEX PCR Negative (Negative)
== END ==
PROVIDERS: PCP Student in an Organized Health Care Education/Training Program; Visit Provider Physician Assistant Medical
DX: R05.1 Acute cough (principal)
CPT/HCPCS: 0241U

== ENCOUNTER 2024-03-08 19:19 | Emergency (ER) | payer MEDICARE, OTHER, SELFPAY ==
[2024-03-08] VITALS (7 sets, daily range): BP systolic 122–145; BP diastolic 83–87; PULSE 61–72; RESP 18; TEMP 36.3; O2SAT 94–96; BMI 36.6
--- NOTE | 2024-03-08 21:31 | ED_ITS ---
HPI - URI/Sore Throat General Chief Complaint: Upper Respiratory Symptoms Stated Complaint: cough, congestion, heart pain Time Seen by Provider: 03/08/24 20:58 Source: patient Mode of arrival: Wheelchair History of Present Illness HPI Narrative: 83-year-old female with history of hypertension, asthma presents for 5 days of nonproductive cough, nasal congestion, fatigue. Triage stated complaint states ?heart pain?, however patient denies this to myself. She states that she thinks that she is just badly affected by a cold, but wants to make sure that she was not have pneumonia or anything else. Respiratory swab sent by walk-in clinic. Patient denies chest pain, shortness of breath, weakness, numbness, other complaints. Daughter also checked into the emergency department with similar symptoms. Related Data Home Medications Medication Instructions Recorded Confirmed ALBUTEROL SULFATE (ACCUNEB) 3 ml INH Q 4-6 HR PRN ##0 05/11/12 CA PANTOTHENATE/FOLIC ACID/VIT 1 tab PO QDAY ##0 05/11/12 (MULTIVITAMIN) VITAMIN D (Vitamin D3) 2,000 iu PO QDAY ##0 05/11/12 LEVOTHYROXINE SODIUM 0.1 mg PO QDAY ##0 09/13/12 amlodipine 5 mg tablet (Norvasc) 10 mg PO QDAY ##0 09/13/12 hydrochlorothiazide 25 mg tablet 25 mg PO QDAY ##0 09/13/12 omeprazole 40 mg capsule,delayed 40 mg PO QDAY ##0 09/13/12 release venlafaxine 150 mg 300 mg PO QDAY ##0 09/13/12 capsule,extended release 24 hr fluticasone propionate 110 1 spray INH BID ##0 02/10/16 mcg/actuation HFA aerosol inhaler (Flovent HFA) atorvastatin 10 mg tablet 10 mg PO DAILY 03/08/24 03/08/24 buspirone 5 mg tablet 5 mg PO 3XD 03/08/24 03/08/24 calcitonin (salmon) 200 intranasal 03/08/24 03/08/24 unit/actuation nasal spray donepezil 10 mg tablet 10 mg PO DAILY 03/08/24 03/08/24 gabapentin 300 mg capsule mg PO 03/08/24 03/08/24 lamotrigine 150 mg tablet 150 mg PO BID 03/08/24 03/08/24 lamotrigine 25 mg tablet 50 mg PO DAILY 03/08/24 03/08/24 levetiracetam 500 mg tablet 500 mg PO BID 03/08/24 03/08/24 levothyroxine 100 mcg tablet 100 mcg PO DAILY 03/08/24 03/08/24 (Synthroid) oxybutynin chloride 5 mg tablet 5 mg PO BID 03/08/24 03/08/24 potassium chloride 20 mEq 20 meq PO DAILY 03/08/24 03/08/24 tablet,extended release(part/cryst) (Klor-Con M) pramipexole 0.125 mg tablet 0.125 mg PO DAILY 03/08/24 03/08/24 propranolol 10 mg tablet 10 mg PO BID 03/08/24 03/08/24 venlafaxine 37.5 mg 37.5 mg PO DAILY 03/08/24 03/08/24 capsule,extended release 24 hr Previous Rx's Medication Instructions Recorded nitrofurantoin 100 mg PO BID 7 days #0 caps 02/10/16 monohydrate/macrocrystals 100 mg capsule (Macrobid) phenazopyridine 200 mg tablet 200 mg PO TID PRN #6 tabs 02/10/16 (Pyridium) diazepam 2 mg tablet (Valium) 2 mg PO TID PRN dizziness #15 tabs 12/10/21 meclizine 25 mg tablet 25 mg PO QID PRN dizziness #60 tabs 12/10/21 ketorolac 10 mg tablet 10 mg PO Q6H PRN pain #14 tabs 09/26/22 lidocaine 5 % topical patch 1 patch topical DAILY #15 ea 09/26/22 (Lidoderm) Allergies Allergy/AdvReac Type Severity Reaction Status Date / Time ciprofloxacin [From CIPRO] Allergy Unknown Verified 03/08/24 18:54 codeine [CODEINE] Allergy Unknown HALLUCINATI Verified 03/08/24 18:54 ON/WOOZY lisinopril [LISINOPRIL] Allergy Unknown COUGH Verified 03/08/24 18:54 morphine [MORPHINE] Allergy Unknown HALLUCINATI Verified 03/08/24 18:54 ONS pramipexole [PRAMIPEXOLE] Allergy Unknown MULTIPLE Verified 03/08/24 18:54 UNPLEASANT SIDE EFFECTS Patient History Medical History Restless legs Osteoporosis DIEGO (obstructive sleep apnea) Obesity Lumbar radiculopathy Low back pain Hypothyroidism Difficulty walking Depression CTS (carpal tunnel syndrome) Asthma Arthritis Ankle fracture, left Memory loss Epilepsy Lung cancer Uterine cancer Hyperlipidemia Hypertension Normal pressure hydrocephalus Surgical History 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 (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) History of total right hip arthroplasty H/O total hysterectomy with bilateral salpingo-oophorectomy (BSO) History of carpal tunnel release History of cholecystectomy Status post Madhav fundoplication Social History household members: spouse Smoking Status: Never smoker alcohol intake: never Smoking Status: Never smoker Exam Initial Vital Signs Initial Vital Signs: Vital Signs Temperature 97.4 F L 03/08/24 19:45 Pulse Rate 72 03/08/24 19:45 Respiratory Rate 18 03/08/24 19:45 Blood Pressure 122/83 03/08/24 19:45 Pulse Oximetry 96 03/08/24 19:45 Oxygen Delivery Method Room Air 03/08/24 19:45 Const: Awake, alert, no acute distress, nontoxic appearing Cardiac: regular rate, regular rhythm RESP: unlabored, clear bilaterally, no wheezing Skin: Warm, Dry, intact, no rashes Neuro: AO x3, CN II-XII grossly intact, moves all extremities Course Orders Ordered: ED Orders 03/08/24 21:30 Chest [XR chest 1V] Stat 03/08/24 22:05 Complete Blood Count AUTO DIFF Stat Comprehensive Metabolic Panel Stat Vital Signs Vital signs: Vital Signs - 8 hr 03/08/24 19:45 03/08/24 21:03 03/08/24 21:04 Temperature 97.4 F L Pulse Rate 72 70 Respiratory Rate 18 Blood Pressure 122/83 137/85 Pulse Oximetry 96 96 Oxygen Delivery Method Room Air 03/08/24 21:30 03/08/24 21:30 03/08/24 22:00 Temperature Pulse Rate 66 65 Respiratory Rate Blood Pressure 145/87 H Pulse Oximetry 96 95 Oxygen Delivery Method 03/08/24 22:30 03/08/24 23:00 Temperature Pulse Rate 61 62 Respiratory Rate Blood Pressure Pulse Oximetry 96 94 Oxygen Delivery Method Room Air MDM - URI/Sore Throat Differential Diagnosis Differential diagnosis: Likely upper respiratory infection, viral infection and bronchitis Lab Data 03/08/24 22:05 03/08/24 22:05 Labs: Lab Results 03/08/24 03/08/24 Range/Units 21:55 22:05 WBC Cancelled 5.7 RBC Cancelled 4.30 Hgb Cancelled 13.6 Hct Cancelled 40.6 MCV Cancelled 94.4 MCH Cancelled 31.7 MCHC Cancelled 33.6 RDW Cancelled 14.0 Plt Count Cancelled 275 Neut % (Auto) Cancelled 59.7 Lymph % (Auto) Cancelled 26.6 Finney % (Auto) Cancelled 10.2 Eos % (Auto) Cancelled 2.6 Baso % (Auto) Cancelled 0.9 Neut # (Auto) Cancelled 3400 Lymph # (Auto) Cancelled 1500 [place]ney # (Auto) Cancelled 600 Eos # (Auto) Cancelled 200 Baso # (Auto) Cancelled 100 Sodium Cancelled 138 Potassium Cancelled 4.9 Chloride Cancelled 103 Carbon Dioxide Cancelled 31 BUN Cancelled 22 H Creatinine Cancelled 0.64 Estimated GFR Cancelled > 60 BUN/Creatinine Ratio Cancelled 34.4 H Glucose Cancelled 80 Calcium Cancelled 10.4 H Total Bilirubin Cancelled 0.6 AST Cancelled 52 H ALT Cancelled 33 Alkaline Phosphatase Cancelled 215 H Total Protein Cancelled 7.3 Albumin Cancelled 4.2 Globulin Cancelled 3.1 Albumin/Globulin Ratio Cancelled 1.4 Imaging Data Chest x-ray: Radiologist's Impression: PROCEDURE: XR CHEST 1V INDICATIONS: FATIGUE, COUGH X 5 DAYS TECHNIQUE: One view of the chest was acquired. COMPARISON: [facility], CR, XR CHEST 1V, 12/09/2021, 19:26. [facility], CR, XR CHEST 2V, 09/27/2021, 20:07. FINDINGS: Surgical changes and devices: Partially visualized posterior surgical fusion hardware of the thoracolumbar spine and 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 shunt catheter tubing. Lungs and pleura: Lungs are clear. No pleural effusions or pneumothorax. Stable left middle lung zone scar. Mediastinum: Mediastinal contours appear normal. Heart size is normal. Bones and chest wall: No suspicious bony lesions. Overlying soft tissues appear unremarkable. IMPRESSION: No acute cardiopulmonary abnormality is seen. Dictated by: Tyler Bridges M.D. on 03/08/2024 at 22:05 Approved by: Tyler Bridges M.D. on 03/08/2024 at 22:06 [facility] Narrative Medical decision making narrative: Well-appearing patient with 5 days of symptoms. Physical exam is benign, no acute findings, patient was resting comfortably in ED bed with normal vital signs. Quite possibly viral syndrome, however due to age and reported fatigue blood work and chest x-ray to be ordered. Laboratory work reviewed, no significant abnormalities identified. Alk phos 215, however patient appears to have elevations in alkaline phosphatase as far back as September of 2022. Electrolytes normal. Chest x-ray negative for acute findings. Patient negative for flu, COVID, RSV from walk-in clinic. Patient reassessed, continues to rest comfortably in ED bed with stable vitals. She was informed of all lab and imaging findings, she is relieved to know her chest x- ray does not show any signs of pneumonia at this time. She was eager to go home. at bedside in agreement. Discharge Plan Departure Patient Disposition: Home Clinical Impression: Upper respiratory infection Instructions: DI for Viral Upper Respiratory Infection -- Adult Activity Restrictions/Additional Instructions: Your laboratory work and chest x-ray did not show any concerning findings. You tested negative for COVID, flu, and RSV. This is still likely a viral process and should get better with time. Make sure you stay hydrated and drink plenty of fluids. Take Tylenol as needed for fever or discomfort. Follow up with your primary care doctor if you do not notice improvement or return to the ER for evaluation. Prescriptions: No Action oxybutynin chloride 5 mg tablet 5 mg PO BID calcitonin (salmon) 200 unit/actuation spray,non-aerosol intranasal venlafaxine 37.5 mg capsule,extended release 24hr 37.5 mg PO DAILY pramipexole 0.125 mg tablet 0.125 mg PO DAILY gabapentin 300 mg capsule PO propranolol 10 mg tablet 10 mg PO BID lamotrigine 150 mg tablet 150 mg PO BID lamotrigine 25 mg tablet 50 mg PO DAILY potassium chloride [Klor-Con M20] 20 mEq tablet,ER particles/crystals 20 meq PO DAILY levothyroxine [Synthroid] 100 mcg tablet 100 mcg PO DAILY levetiracetam 500 mg tablet 500 mg PO BID atorvastatin 10 mg tablet 10 mg PO DAILY donepezil 10 mg tablet 10 mg PO DAILY buspirone 5 mg tablet 5 mg PO 3XD ALBUTEROL SULFATE (ACCUNEB) 3 ml INH Q 4-6 HR PRN Qty: 0 CA PANTOTHENATE/FOLIC ACID/VIT (MULTIVITAMIN) 1 tab PO QDAY Qty: 0 VITAMIN D (Vitamin D3) 2,000 iu PO QDAY Qty: 0 amlodipine [Norvasc] 5 MG tablet 10 mg PO QDAY Qty: 0 omeprazole 40 MG capsule,delayed release(DR/EC) 40 mg PO QDAY Qty: 0 hydrochlorothiazide 25 MG tablet 25 mg PO QDAY Qty: 0 LEVOTHYROXINE SODIUM 0.1 mg PO QDAY Qty: 0 venlafaxine 150 MG capsule,extended release 24hr 300 mg PO QDAY Qty: 0 fluticasone propionate [Flovent HFA] 12 GM HFA aerosol inhaler 1 spray INH BID Qty: 0 phenazopyridine [Pyridium] 200 MG tablet 200 mg PO TID PRNQty: 6 0RF nitrofurantoin monohyd/m-cryst [Macrobid] 100 MG capsule 100 mg PO BID 7 Days Qty: 0 0RF meclizine 25 mg tablet 25 mg PO QID PRN (Reason: dizziness) Qty: 60 0RF diazepam [Valium] 2 mg tablet 2 mg PO TID PRN (Reason: dizziness) Qty: 15 0RF ketorolac 10 mg tablet 10 mg PO Q6H PRN (Reason: pain) Qty: 14 0RF lidocaine [Lidoderm] 5 % adhesive patch,medicated 1 patch TOP DAILY Qty: 15 0RF Rx Instructions: leave on most painful area for 12 hrs Referrals: Myla Edouard MD [Primary Care Provider] - Stand Alone Forms: Patient Portal/API/Survey
[2024-03-08 22:20] LABS: Add Manual Diff / Slide Review NO; Basophils Absolute Auto 100 /uL (0-100); Basophils Percent Auto 0.9 % (0-2); Eosinophils Absolute Auto 200 /uL (0-450); Eosinophils Percent Auto 2.6 % (2-4); Hematocrit 40.6 % (36-46); Hemoglobin 13.6 g/dL (12.0-16.0); Lymphocytes Absolute Auto 1500 /uL (1100-4500); Lymphocytes Percent Auto 26.6 % (25-40); Mean Corpuscular HGB Conc 33.6 % (30-36); Mean Corpuscular Hemoglobin 31.7 PG (26-34); Mean Corpuscular Volume 94.4 fL (80-100); Monocytes Absolute Auto 600 /uL (0-900); Monocytes Percent Auto 10.2 % (3-14); Neutrophils Absolute Auto 3400 /uL (1500-7000); Neutrophils Percent Auto 59.7 % (50-75); Platelet Count 275 X10^3/uL (150-400); White Blood Cell Count 5.7 X10^3/uL (4.5-11.0)
[2024-03-08 22:33] LABS: Alanine Aminotransferase 33 IU/L (<35); Albumin 4.2 g/dL (3.5-5.0); Albumin Globulin Ratio 1.4 (1.0-2.8); Alkaline Phosphatase 215 U/L (38-126); Aspartate Aminotransferase 52 IU/L (14-36); BUN Creatinine Ratio 34.4 (6-22); Bilirubin Total 0.6 mg/dL (0.2-1.3); Blood Urea Nitrogen 22 mg/dL (7-17); Calcium 10.4 mg/dL (8.4-10.2); Carbon Dioxide 31 mmol/L (22-32); Chloride 103 mmol/L (98-107); Estimated Glomerular Filt Rate > 60 mL/min (>60); Globulin 3.1 g/dL (1.7-4.1); Glucose 80 mg/dL (80-110); Sodium 138 mmol/L (137-145); Total Protein 7.3 g/dL (6.3-8.2)
[2024-03-08 22:34] LABS: HEMOLYSIS 143 (0-50); Potassium 4.9 mmol/L (3.4-5.1)
== END 2024-03-08 23:12 | disposition home or self-care (01) ==
PROVIDERS: Emergency Provider Emergency Medicine; PCP Student in an Organized Health Care Education/Training Program
DX: J06.9 Acute upper respiratory infection, unspecified (principal); R05.9 Cough, unspecified; R07.89 Other chest pain
CPT/HCPCS: 0241U; 36415; 71045; 80053; 85025; 99283; 99284

== ENCOUNTER 2025-01-21 18:36 | Emergency (ER) | payer MEDICARE, OTHER, SELFPAY ==
[2025-01-21 18:41] VITALS: BP 124/76; PULSE 55; RESP 18; TEMP 36.4; O2SAT 95; BMI 35.5
--- NOTE | 2025-01-21 18:47 | DI.RAD.S_ITS ---
PROCEDURE: XR HAND RT MIN 3V INDICATIONS: dog bite TECHNIQUE: 3 views of the hand(s) acquired. COMPARISON: None. FINDINGS: Bones: No acute fractures or dislocations. Carpal bones are normally aligned. No suspicious bony lesions. Moderate-severe polyarticular background degenerative changes of the right hand and wrist, most severe at the 1st carpometacarpal joint, thumb metacarpophalangeal joint, thumb interphalangeal joint, the distal interphalangeal joints of the 2nd through 5th fingers, and the proximal interphalangeal joints of the 2nd through 5th proximal interphalangeal joints. Healed fracture deformities involving the 4th and 5th metacarpals. Soft tissues: No suspicious soft tissue calcifications. No radiopaque soft tissue foreign bodies. IMPRESSION: Right hand without acute fracture or dislocation. No radiopaque soft tissue foreign bodies. Dictated by: Bo Lerma M.D. on 01/21/2025 at 19:59 Approved by: Bo Lerma M.D. on 01/21/2025 at 20:01
[2025-01-21 22:42] VITALS: PULSE 64
[2025-01-21 22:43] VITALS: BP 123/74; PULSE 58; O2SAT 97
[2025-01-21] MEDS: TET,DIPH,PERTUSS(ACELL),VAC/PF 0.5 ML SYRINGE IM (22:50)
--- NOTE | 2025-01-21 23:22 | ED.ANIMALBIT ---
HPI - Animal Bite General Chief Complaint: Animal Bite Stated Complaint: Rt hand laceration/injury Time Seen by Provider: 01/21/25 22:44 Source: patient Mode of arrival: Wheelchair History of Present Illness HPI narrative: 84-year-old female sustained from dog bite injury to the dorsum of the right index finger this afternoon by their own household vaccinated dog, in a provoked setting while trying to trim the dog who is fearful of scissors/tremors, dog has had rabies vaccination series. Bite injury to the dorsum of the right middle finger, no other injuries. NKDA. Last tetanus greater than 5 years ago. Related Data Home Medications ?Medication ?Instructions ?Recorded ?Confirmed ALBUTEROL SULFATE (ACCUNEB) 3 ml INH Q 4-6 HR PRN ##0 05/11/12 08/17/24 CA PANTOTHENATE/FOLIC ACID/VIT 1 tab PO QDAY ##0 05/11/12 08/17/24 (MULTIVITAMIN) VITAMIN D (Vitamin D3) 2,000 iu PO QDAY ##0 05/11/12 LEVOTHYROXINE SODIUM 0.1 mg PO QDAY ##0 09/13/12 amlodipine 5 mg tablet (Norvasc) 10 mg PO QDAY ##0 09/13/12 08/17/24 hydrochlorothiazide 25 mg tablet 25 mg PO QDAY ##0 09/13/12 omeprazole 40 mg capsule,delayed 40 mg PO QDAY ##0 09/13/12 release venlafaxine 150 mg 300 mg PO QDAY ##0 09/13/12 capsule,extended release 24 hr fluticasone propionate 110 1 spray INH BID ##0 02/10/16 08/17/24 mcg/actuation HFA aerosol inhaler (Flovent HFA) atorvastatin 10 mg tablet 10 mg PO DAILY 03/08/24 08/17/24 buspirone 5 mg tablet 5 mg PO 3XD 03/08/24 08/17/24 calcitonin (salmon) 200 intranasal 03/08/24 08/17/24 unit/actuation nasal spray donepezil 10 mg tablet 10 mg PO DAILY 03/08/24 08/17/24 gabapentin 300 mg capsule mg PO 03/08/24 08/17/24 lamotrigine 150 mg tablet 150 mg PO BID 03/08/24 03/08/24 lamotrigine 25 mg tablet 50 mg PO DAILY 03/08/24 03/08/24 levetiracetam 500 mg tablet 500 mg PO BID 03/08/24 03/08/24 levothyroxine 100 mcg tablet 100 mcg PO DAILY 03/08/24 03/08/24 (Synthroid) oxybutynin chloride 5 mg tablet 5 mg PO BID 03/08/24 03/08/24 potassium chloride 20 mEq 20 meq PO DAILY 03/08/24 03/08/24 tablet,extended release(part/cryst) (Klor-Con M) pramipexole 0.125 mg tablet 0.125 mg PO DAILY 03/08/24 03/08/24 propranolol 10 mg tablet 10 mg PO BID 03/08/24 03/08/24 venlafaxine 37.5 mg 37.5 mg PO DAILY 03/08/24 03/08/24 capsule,extended release 24 hr albuterol sulfate 90 mcg/actuation 2 puff inhalation Q6H PRN 08/17/24 08/17/24 aerosol inhaler levofloxacin 500 mg tablet 500 mg PO DAILY 08/17/24 08/17/24 ondansetron 4 mg disintegrating mg PO 08/17/24 08/17/24 tablet Previous Rx's ?Medication ?Instructions ?Recorded nitrofurantoin 100 mg PO BID 7 days #0 caps 02/10/16 monohydrate/macrocrystals 100 mg capsule (Macrobid) phenazopyridine 200 mg tablet 200 mg PO TID PRN #6 tabs 02/10/16 (Pyridium) diazepam 2 mg tablet (Valium) 2 mg PO TID PRN dizziness #15 tabs 12/10/21 meclizine 25 mg tablet 25 mg PO QID PRN dizziness #60 tabs 12/10/21 ketorolac 10 mg tablet 10 mg PO Q6H PRN pain #14 tabs 09/26/22 lidocaine 5 % topical patch 1 patch topical DAILY #15 ea 09/26/22 (Lidoderm) amoxicillin 875 mg tablet 875 mg PO BID dental infection 7 01/21/25 days #14 tabs Allergies Allergy/AdvReac Type Severity Reaction Status Date / Time ciprofloxacin (From CIPRO) Allergy Unknown Verified 01/21/25 18:44 codeine (CODEINE) Allergy Unknown HALLUCINATI Verified 01/21/25 18:44 ON/WOOZY lisinopril (LISINOPRIL) Allergy Unknown COUGH Verified 01/21/25 18:44 morphine (MORPHINE) Allergy Unknown HALLUCINATI Verified 01/21/25 18:44 ONS pramipexole (PRAMIPEXOLE) Allergy Unknown MULTIPLE Verified 01/21/25 18:44 UNPLEASANT SIDE EFFECTS Patient History Medical History Restless legs Osteoporosis DIEGO (obstructive sleep apnea) Obesity Lumbar radiculopathy Low back pain Hypothyroidism Difficulty walking Depression CTS (carpal tunnel syndrome) Asthma Arthritis Ankle fracture, left Memory loss Epilepsy Lung cancer Uterine cancer Hyperlipidemia Hypertension Normal pressure hydrocephalus Surgical History 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 HEAD: Atraumatic. Normocephalic. EYES: Pupils equal round and reactive. Extraocular motions intact. No scleral icterus. No injection or drainage. ENT: Nose without bleeding, purulent drainage. Throat without erythema, tonsillar hypertrophy or exudate. Airway patent. NECK: Trachea midline. Non tender CARDIOVASCULAR: Regular rate and rhythm without murmurs, gallops, or rubs. RESPIRATORY: Clear to auscultation. Breath sounds equal bilaterally. No wheezes, rales, or rhonchi. GASTROINTESTINAL: Abdomen soft, non-tender, nondistended. EXTREMITIES: Dorsal left middle finger proximal puncture wound, with full extension, no visible tendon structure. Some swelling to the MCP region. No palmar/volar swelling. Good perfusion distal finger. No other obvious lesions to adjacent fingers or dorsal hand or volar hand. No lymphangitic redness streaking to the wrist/forearm. BACK: Nontender without deformity or crepitance. No flank tenderness. NEURO: AOx3. Motor functions grossly nonfocal. SKIN: No rash or erythema of visible areas Initial Vital Signs Initial Vital Signs: Vital Signs Temperature 97.6 F 01/21/25 18:41 Pulse Rate 55 L 01/21/25 18:41 Respiratory Rate 18 01/21/25 18:41 Blood Pressure 124/76 01/21/25 18:41 Pulse Oximetry 95 01/21/25 18:41 Oxygen Delivery Method Room Air 01/21/25 18:41 Course Orders Ordered: Discontinued Medications Amoxicillin/Clavulanate Potassium (Amoxicillin/Clav 875/125 Mg) 1 tab PO NOW ONE Stop: 01/21/25 23:28 Last Admin: 01/21/25 23:42 Dose: 1 tab Documented By: MASTER Bacitracin (Bacitracin Oint 0.9 Gm Pckt) 1 applic TOP NOW ONE Stop: 01/21/25 23:50 Last Admin: 01/21/25 23:57 Dose: 1 applic Documented By: MASTER Diphtheria/Tetanus/Acell Pertussis (Tet,Diph,Pertuss(Acell),Vac/Pf 0.5 Ml Syringe) 0.5 ml IM .ONCE ONE Stop: 01/21/25 22:44 Last Admin: 01/21/25 22:50 Dose: 0.5 ml Documented By: Vital Signs Vital signs: Vital Signs - 8 hr 01/21/25 22:42 01/21/25 22:43 01/21/25 22:43 Pulse Rate 64 58 L Blood Pressure 123/74 Pulse Oximetry 97 Oxygen Delivery Method Room Air MDM - Animal Bite MDM Narrative Medical decision making narrative: 84-year-old female with provoked by by her vaccinated household dog who was fearful of tremor as they are attempting to room their dog, dog bite injury earlier this afternoon, tetanus updated. Small puncture wound with surrounding ecchymoses MCP dorsal middle finger. X-ray affected finger without obvious fracture, foreign body changes, per Radiology report. Local wound irrigation, finger splint with Coban body wrap adjacent finger. Oral dose antibiotic Augmentin given, prescription sent for further course to her pharmacy. Wound check advised in clinic Thursday with PCP or with local orthopedic surgery, given clinic contact information for local orthopedic surgery. Return precautions discussed. Discharged home with . Discharge Plan Departure Patient Disposition: Home Clinical Impression: Puncture wound of finger Instructions: DI for Dog Bite Activity Restrictions/Additional Instructions: Dog bite puncture wound right middle finger dorsum top position, over the extensor tendon, no visualized tendon. X-ray negative for fracture or foreign body. Puncture with dog bite wound, irrigated, we will not close primarily as this is increased risk of infection, and in fact could track along the tendon structures. Oral antibiotic Augmentin (amoxicillin/clavulanate) 1st dose given in the emergency department, with prescription sent to your pharmacy to continue treatment for the next 5-7 days. Local wound dressing applied, with finger splint and Coban wrapping to the adjacent finger. Wound check advised with your regular doctor, or with Orthopedic surgery Clinic in the next 2-3 days. Return to this/nearest emergency department for any change worsening symptoms or any concerns prior. Tetanus shot also given, updated tetanus status. Prescriptions: New amoxicillin 875 mg tablet 875 mg PO BID 7 Days Qty: 14 0RF No Action oxybutynin chloride 5 mg tablet 5 mg PO BID calcitonin (salmon) 200 unit/actuation spray,non-aerosol intranasal venlafaxine 37.5 mg capsule,extended release 24hr 37.5 mg PO DAILY pramipexole 0.125 mg tablet 0.125 mg PO DAILY gabapentin 300 mg capsule PO propranolol 10 mg tablet 10 mg PO BID lamotrigine 150 mg tablet 150 mg PO BID lamotrigine 25 mg tablet 50 mg PO DAILY potassium chloride [Klor-Con M20] 20 mEq tablet,ER particles/crystals 20 meq PO DAILY levothyroxine [Synthroid] 100 mcg tablet 100 mcg PO DAILY levetiracetam 500 mg tablet 500 mg PO BID atorvastatin 10 mg tablet 10 mg PO DAILY donepezil 10 mg tablet 10 mg PO DAILY buspirone 5 mg tablet 5 mg PO 3XD ALBUTEROL SULFATE (ACCUNEB) 3 ml INH Q 4-6 HR PRN Qty: 0 CA PANTOTHENATE/FOLIC ACID/VIT (MULTIVITAMIN) 1 tab PO QDAY Qty: 0 VITAMIN D (Vitamin D3) 2,000 iu PO QDAY Qty: 0 amlodipine [Norvasc] 5 MG tablet 10 mg PO QDAY Qty: 0 omeprazole 40 MG capsule,delayed release(DR/EC) 40 mg PO QDAY Qty: 0 hydrochlorothiazide 25 MG tablet 25 mg PO QDAY Qty: 0 LEVOTHYROXINE SODIUM 0.1 mg PO QDAY Qty: 0 venlafaxine 150 MG capsule,extended release 24hr 300 mg PO QDAY Qty: 0 fluticasone propionate [Flovent HFA] 12 GM HFA aerosol inhaler 1 spray INH BID Qty: 0 phenazopyridine [Pyridium] 200 MG tablet 200 mg PO TID PRNQty: 6 0RF nitrofurantoin monohyd/m-cryst [Macrobid] 100 MG capsule 100 mg PO BID 7 Days Qty: 0 0RF meclizine 25 mg tablet 25 mg PO QID PRN (Reason: dizziness) Qty: 60 0RF diazepam [Valium] 2 mg tablet 2 mg PO TID PRN (Reason: dizziness) Qty: 15 0RF ketorolac 10 mg tablet 10 mg PO Q6H PRN (Reason: pain) Qty: 14 0RF lidocaine [Lidoderm] 5 % adhesive patch,medicated 1 patch TOP DAILY Qty: 15 0RF Rx Instructions: leave on most painful area for 12 hrs levofloxacin 500 mg tablet 500 mg PO DAILY ondansetron 4 mg tablet,disintegrating PO albuterol sulfate 90 mcg/actuation HFA aerosol inhaler 2 puff inhalation Q6H PRN Referrals: David Hirsch MD [Physician, Orthopedic Surgery] Stand Alone Forms: Patient Portal/API
[2025-01-21] MEDS: AMOXICILLIN/CLAV 875/125 MG 1 TAB PO (23:42)
[2025-01-21] MEDS: BACITRACIN OINT 0.9 GM PCKT 1 APPLIC TOP (23:57)
--- NOTE | 2025-01-21 23:57 | PC.NURSE ---
bacitracin applied to animal bite then tegaderm applied and hand wrapped with gauze, splint applied and and 3rd digit janeth taped to 2nd digit with homer
== END 2025-01-22 | disposition home or self-care (01) ==
PROVIDERS: Emergency Provider Emergency Medicine
DX: S61.233A Puncture wound without foreign body of left middle finger without damage to nail, initial encounter (principal); W54.0XXA Bitten by dog, initial encounter; Z23 Encounter for immunization
CPT/HCPCS: 73130; 90471; 99283; 90715